=== PATIENT | male | born 1950 | race Caucasian/White ===

== ENCOUNTER 2016-05-21 08:03 | Inpatient (IN) | payer BC, MEDICARE ==
[2016-05-21] MEDS ORDERED: HYDROmorphone 1 MG/ML SYRINGE IVP STA ×2 (08:32→13:33)
[2016-05-21] MEDS ORDERED: SODIUM CHLORIDE 0.9% 1,000 ML IV ONE (08:32)
[2016-05-21] MEDS ORDERED: HYDROmorphone 1 MG/ML SYRINGE ONE ×2 (08:37→13:53)
[2016-05-21] MEDS ORDERED: LIDOCAINE 2% URO-JET 5 ML SYRINGE UR ONE ×5 (08:37→13:35)
[2016-05-21] MEDS ORDERED: LIDOCAINE 1%-EPI 1:100000 20 ML MDV ONE (12:52)
[2016-05-21] MEDS ORDERED: cefTRIAXone 1 GM in SODIUM CHLORIDE 0.9% MINIBAG 100 ML IV STA (13:33)
[2016-05-21] MEDS ORDERED: cefTRIAXone 1 GM VIAL ONE (13:55)
[2016-05-21] MEDS ORDERED: ACETAMINOPHEN 325 MG TABLET PO PRN (15:34)
[2016-05-21] MEDS ORDERED: ZOLPIDEM 5 MG TABLET PO PRN (15:34)
[2016-05-21] MEDS ORDERED: SODIUM CHLORIDE FLUSH 0.9% 10 ML SYRINGE IVP PRN (15:34)
[2016-05-21] MEDS ORDERED: HYDROmorphone 1 MG/ML SYRINGE IVP PRN (15:34)
[2016-05-21] MEDS ORDERED: PHENAZOPYRIDINE 100 MG TABLET PO PRN (15:34)
[2016-05-21] MEDS ORDERED: HYDROcod/ACETAM 10 MG/325 MG TABLET PO PRN (15:34)
[2016-05-21] MEDS ORDERED: ONDANSETRON 4 MG/2 ML VIAL IVP PRN (15:34)
[2016-05-21] MEDS: SODIUM CHLORIDE 0.9% 1,000 ML IV SCH (16:09)
[2016-05-21] MEDS: INSULIN ASPART 300 UNIT/3 ML PEN SUBQ SCH ×2 (17:42→21:59)
[2016-05-21] MEDS: HYDROcod/ACETAM 5/325 MG TABLET PO PRN (17:46)
[2016-05-21] MEDS: ATORVASTATIN 40 MG TABLET PO SCH (21:59)
[2016-05-21] MEDS: SODIUM CHLORIDE FLUSH 0.9% 10 ML SYRINGE IVP SCH (22:01)
[2016-05-21] MEDS: INSULIN GLARGINE 300 UNIT/3 ML PEN SUBQ SCH (22:05)
[2016-05-22] MEDS: SODIUM CHLORIDE 0.9% 1,000 ML IV SCH ×3 (01:31→21:14)
[2016-05-22] MEDS: SODIUM CHLORIDE FLUSH 0.9% 10 ML SYRINGE IVP SCH ×3 (06:26→21:17)
[2016-05-22] MEDS: PANTOPRAZOLE 40 MG TABLET PO SCH (06:27)
[2016-05-22] MEDS: POLYETHYLENE GLYCOL 3350 17 GM PACKET PO SCH (09:47)
[2016-05-22] MEDS: INSULIN ASPART 300 UNIT/3 ML PEN SUBQ SCH ×4 (10:20→21:16)
[2016-05-22] MEDS: LOSARTAN 50 MG TABLET PO SCH (10:21)
[2016-05-22] MEDS: ENOXAPARIN 40 MG/0.4 ML SYRINGE SUBQ SCH (10:21)
[2016-05-22] MEDS: EPLERENONE 25 MG TABLET PO SCH (10:22)
[2016-05-22] MEDS: CARVEDILOL 3.125 MG TABLET PO SCH (10:22)
[2016-05-22] MEDS: HYDROcod/ACETAM 5/325 MG TABLET PO PRN (10:22)
[2016-05-22] MEDS: TAMSULOSIN 0.4 MG CAPSULE PO SCH (10:23)
[2016-05-22] MEDS: ATORVASTATIN 40 MG TABLET PO SCH (21:16)
[2016-05-22] MEDS: INSULIN GLARGINE 300 UNIT/3 ML PEN SUBQ SCH (21:17)
[2016-05-23] MEDS: SODIUM CHLORIDE FLUSH 0.9% 10 ML SYRINGE IVP SCH ×3 (00:10→17:16)
[2016-05-23] MEDS ORDERED: LORazepam 2 MG/ML SYRINGE IVP PRN (03:24)
[2016-05-23] MEDS ORDERED: LIDOCAINE JELLY 2% 30 ML TUBE TOP PRN (03:25)
[2016-05-23] MEDS ORDERED: LIDOCAINE JELLY 2% 5 ML TUBE TOP ONE (03:32)
[2016-05-23] MEDS: PANTOPRAZOLE 40 MG TABLET PO SCH (05:27)
[2016-05-23] MEDS: LOSARTAN 50 MG TABLET PO SCH (07:57)
[2016-05-23] MEDS: TAMSULOSIN 0.4 MG CAPSULE PO SCH (07:57)
[2016-05-23] MEDS: POLYETHYLENE GLYCOL 3350 17 GM PACKET PO SCH (07:58)
[2016-05-23] MEDS: ENOXAPARIN 40 MG/0.4 ML SYRINGE SUBQ SCH (07:58)
[2016-05-23] MEDS: EPLERENONE 25 MG TABLET PO SCH (07:58)
[2016-05-23] MEDS: CARVEDILOL 3.125 MG TABLET PO SCH (07:58)
[2016-05-23] MEDS: INSULIN ASPART 300 UNIT/3 ML PEN SUBQ SCH ×4 (07:59→21:09)
[2016-05-23] MEDS: SODIUM CHLORIDE 0.9% 1,000 ML IV SCH ×2 (13:27→22:37)
[2016-05-23] MEDS: SENNA 8.6 MG TABLET PO SCH (21:03)
[2016-05-23] MEDS: ATORVASTATIN 40 MG TABLET PO SCH (21:07)
[2016-05-23] MEDS: INSULIN GLARGINE 300 UNIT/3 ML PEN SUBQ SCH (21:08)
[2016-05-24] MEDS: SODIUM CHLORIDE FLUSH 0.9% 10 ML SYRINGE IVP SCH ×2 (01:14→13:22)
[2016-05-24] MEDS: PANTOPRAZOLE 40 MG TABLET PO SCH (06:04)
[2016-05-24] MEDS: SENNA 8.6 MG TABLET PO SCH ×2 (06:04→13:46)
[2016-05-24] MEDS: INSULIN ASPART 300 UNIT/3 ML PEN SUBQ SCH ×2 (07:50→11:26)
[2016-05-24] MEDS: EPLERENONE 25 MG TABLET PO SCH (08:17)
[2016-05-24] MEDS: SODIUM CHLORIDE 0.9% 1,000 ML IV SCH ×2 (08:17→13:23)
[2016-05-24] MEDS: ENOXAPARIN 40 MG/0.4 ML SYRINGE SUBQ SCH (08:18)
[2016-05-24] MEDS: CARVEDILOL 3.125 MG TABLET PO SCH (08:18)
[2016-05-24] MEDS: POLYETHYLENE GLYCOL 3350 17 GM PACKET PO SCH (08:19)
[2016-05-24] MEDS: LOSARTAN 50 MG TABLET PO SCH (08:19)
[2016-05-24] MEDS: TAMSULOSIN 0.4 MG CAPSULE PO SCH (08:19)
[2016-05-24] MEDS ORDERED: DOCUSATE SODIUM 250 MG CAPSULE PO SCH (09:00)
== END 2016-05-24 15:00 | disposition home or self-care (01) | DRG 728 ==
DX: N41.0 Acute prostatitis (principal); R33.8 Other retention of urine; C61 Malignant neoplasm of prostate; E11.65 Type 2 diabetes mellitus with hyperglycemia; I10 Essential (primary) hypertension; E78.5 Hyperlipidemia, unspecified; I25.10 Atherosclerotic heart disease of native coronary artery without angina pectoris; Q62.5 Duplication of ureter; E65 Localized adiposity; K57.30 Diverticulosis of large intestine without perforation or abscess without bleeding; K42.9 Umbilical hernia without obstruction or gangrene; K40.90 Unilateral inguinal hernia, without obstruction or gangrene, not specified as recurrent; T38.3X6A Underdosing of insulin and oral hypoglycemic [antidiabetic] drugs, initial encounter; Z95.5 Presence of coronary angioplasty implant and graft; Z92.3 Personal history of irradiation; Z95.0 Presence of cardiac pacemaker; Z96.653 Presence of artificial knee joint, bilateral; Z79.899 Other long term (current) drug therapy; Z87.891 Personal history of nicotine dependence

== ENCOUNTER 2016-10-09 08:00 | Outpatient (CLI) | payer BC | END 2016-10-09 23:59 | disposition home or self-care (01) | LOC: LAB.R 08:00 | PROVIDERS: ATTEND Specialist | DX: Z08 Encounter for follow-up examination after completed treatment for malignant neoplasm (principal) | CPT/HCPCS: 36415; 84153 ==

== ENCOUNTER 2016-11-29 07:11 | Day surgery (SDC) | payer BC, MEDICARE ==
[2016-11-29] MEDS ORDERED: LACTATED RINGERS 1,000 ML IV ONE (08:00)
--- NOTE | 2016-11-29 08:28 | HISTORY & PHYSICAL EXAMINATION ---
HPI - History of Present Illness HPI Comment/Other: Patient is here for colonoscopy. Last colonoscopy 2006 and normal. Current Meds: LANTUS SOLOSTAR 100 UNIT/ML SOLN (INSULIN GLARGINE) Inject 10 units sub Q daily TAMSULOSIN HCL 0.4 MG CAPS (TAMSULOSIN HCL) Take one capsule by mouth daily LOSARTAN POTASSIUM 100 MG TABS (LOSARTAN POTASSIUM) Take one tablet by mouth every morning EPLERENONE 25 MG ORAL TABS (EPLERENONE) Take 1 tab by mouth daily CARVEDILOL 6.25 MG ORAL TABS (CARVEDILOL) Take 1 tab by mouth twice daily Allergies: * LATEX (Critical) Past Medical History: Reviewed history and no changes required: Irregular heartbeat Pacemaker internal defibrillator Heart Attack Chest pain hypertension hyperlipidemia severe snoring Sleep Apnea/CPAP use Diabetes Prostate Cancer Family History Summary: Reviewed history and no changes required: 10/16/2016 Mother (biol.) - Has a mother - Entered On: 10/16/2016 Father (biol.) - Has a father - Entered On: 10/16/2016 Social History: Reviewed history and no changes required: Risk Factors: Smoked Tobacco Use: Never smoker Smokeless Tobacco Use: Former Year quit: 2011 Years Since Last Quit: 6 Alcohol use: no Exercise: yes Times per week: 5 Type of Exercise: bike, weights Review of Systems See HPI Physical Exam General: well developed, well nourished, in no acute distress Lungs: clear bilaterally to A & P Heart: regular rate and rhythm, S1, S2 without murmurs, rubs, gallops, or clicks Abdomen: bowel sounds positive; abdomen soft and non-tender without masses, organomegaly, or hernias noted Pulses: pulses normal in all 4 extremities Extremities: no clubbing, cyanosis, edema, or deformity noted with normal full range of motion of all joints Cervical Nodes: no significant adenopathy Psych: alert and cooperative; normal mood and affect; normal attention span and concentration Problems: Problems Added: 1) Dx of Screening, colon cancer ([id number]) (ICD-V76.51) Impression & Recommendations: Problem # 1: Surveillance for colon cancer Will proceed with colonoscopy. PMH/PSH - Past Medical History Cardiovascular: positive: Hypertension, High cholesterol, [place] Respiratory: positive: None, Sleep apnea Neuro: positive: None Endocrine/Autoimmune: positive: Type 2 diabetes GI: positive: None : positive: Retention, Other HEENT: positive: None Psych: positive: None Musculoskeletal: positive: None Derm: positive: None MRSA Hx?: No - Past Surgical History Ortho: positive: Knee replacement, Arthroscopic surgery, Spine surgery Cardiovascular: positive: Coronary stent, AICD, Cardiac catheterization, Angioplasty Social & Family Hx - Social History Does the pt smoke?: No Smoking Status: Former smoker Does the pt drink ETOH?: No ETOH Use: Beer Does the pt have substance abuse?: No - POLST Patient has POLST: No Meds/Allgy - Home Medications Home Medications: Ambulatory Orders Medication Instructions Recorded Confirmed Eplerenone 25 mg PO DAILY 07/22/15 11/29/16 Carvedilol 6.25 mg PO BID 05/09/16 11/29/16 Losartan [Cozaar] 100 mg PO DAILY 05/09/16 11/29/16 Phenazopyridine HCl [Pyridium] 200 mg PO TID PRN #10 tablet 05/09/16 11/29/16 Tamsulosin [Flomax] 0.4 mg PO QPM 05/09/16 11/29/16 Nitroglycerin [Nitrostat] 0.4 mg SL Q5MIN PRN 05/22/16 11/22/16 Insulin Aspart [NovoLOG] 1 - 5 unit SUBQ 05/24/16 11/22/16 0800,1200,1700,2100 #600 pen Insulin Glargine [Lantus Solostar] 10 unit SUBQ QPM #300 pen 05/24/16 11/22/16 Levofloxacin [Levaquin] 750 mg PO DAILYWM #30 tablet 05/24/16 11/22/16 metFORMIN [Glucophage] 1 tab PO BID 11/22/16 11/29/16 - Allergies Allergies/Adverse Reactions: Allergies Allergy/AdvReac Type Severity Reaction Status Date / Time No Known Drug Allergies Allergy Verified 05/21/16 08:17 Exam - Vital Signs Vital Signs: Vital Signs x48h Temp Pulse Resp BP Pulse Ox 11/29/16 07:22 36 C L 63 16 170/84 H 100 Results - Lab Results Other Lab Results: Lab Results x24hrs 11/29/16 Range/Units 07:36 POC Whole Bld Glucose 152 H (70 - 100) mg/dL
[2016-11-29] MEDS ORDERED: LIDOCAINE-MPF 2% 5 ML VIAL IM ONE (09:05)
[2016-11-29] MEDS ORDERED: PHENYLEPHRINE 50 MG/5 ML VIAL IV ONE (09:05)
[2016-11-29] MEDS ORDERED: PROPOFOL 200 MG/20 ML VIAL IVP ONE (09:05)
[2016-11-29 10:20] VITALS: BP 146/94
== END 2016-11-29 07:12 | disposition home or self-care (01) ==
LOC: SDS 07:11
PROVIDERS: ATTEND Surgery
PROC: 0DBL8ZX Excision of Transverse Colon, Via Natural or Artificial Opening Endoscopic, Diagnostic (ICD-10-PCS; 2016-11-29)
PROC: 3E0H8GC Introduction of Other Therapeutic Substance into Lower GI, Via Natural or Artificial Opening Endoscopic (ICD-10-PCS; 2016-11-29)
PROC: 0DBK8ZZ Excision of Ascending Colon, Via Natural or Artificial Opening Endoscopic (ICD-10-PCS; principal; 2016-11-29 08:15)
DX: Z12.11 Encounter for screening for malignant neoplasm of colon (principal); D12.3 Benign neoplasm of transverse colon; D12.4 Benign neoplasm of descending colon; K64.8 Other hemorrhoids; K64.4 Residual hemorrhoidal skin tags; K57.30 Diverticulosis of large intestine without perforation or abscess without bleeding; I25.2 Old myocardial infarction; I10 Essential (primary) hypertension; R06.83 Snoring; G47.30 Sleep apnea, unspecified; J44.9 Chronic obstructive pulmonary disease, unspecified; Z87.891 Personal history of nicotine dependence; Z85.46 Personal history of malignant neoplasm of prostate; E11.9 Type 2 diabetes mellitus without complications; Z95.5 Presence of coronary angioplasty implant and graft; Z95.810 Presence of automatic (implantable) cardiac defibrillator; E78.5 Hyperlipidemia, unspecified
CPT/HCPCS: 45380; 45381; 45385; J7120; 88305

== ENCOUNTER 2016-12-17 09:00 | Outpatient (CLI) | payer BC ==
[2016-12-17 18:21] LABS: BASOPHILS # (AUTO) 0.1 10^3/uL (0.0-0.1); BASOPHILS % (AUTO) 0.8 %; EOSINOPHILS # (AUTO) 0.3 10^3/uL (0.0-0.7); EOSINOPHILS % (AUTO) 4.8 %; HCT - HEMATOCRIT 38.7 % (42.0-52.0); HGB - HEMOGLOBIN 12.9 g/dL (14.0-18.0); LYMPHOCYTES # (AUTO) 1.6 10^3/uL (1.5-3.5); MEAN CORPUSCULAR HEMOGLOBIN 27.1 pg (27.0-31.0); MEAN CORPUSCULAR HGB CONC 33.2 g/dL (32.0-36.0); MEAN CORPUSCULAR VOLUME 81.6 fL (80.0-94.0); MEAN PLATELET VOLUME 8.4 fL (7.4-11.4); MONOCYTES # (AUTO) 0.6 10^3/uL (0.0-1.0); MONOCYTES % (AUTO) 9.1 %; NEUTROPHILS # (AUTO) 3.6 10^3/uL (1.5-6.6); NEUTROPHILS % (AUTO) 59.3 %; RED BLOOD COUNT 4.74 10^6/uL (4.70-6.10); RED CELL DISTRIBUTION WIDTH 16.6 % (12.0-15.0); UNCORRECTED WHITE BLOOD COUNT 6.2 x10^3/uL; WHITE BLOOD COUNT 6.2 x10^3/uL (4.8-10.8)
[2016-12-17 19:18] LABS: BILIRUBIN,TOTAL 1.4 mg/dL (0.2-1.0); CALCIUM 8.9 mg/dL (8.5-10.3); CREATININE 1.2 mg/dL (0.6-1.2); POTASSIUM 3.7 mmol/L (3.5-5.0); TOTAL PROTEIN 7.7 g/dL (6.7-8.2)
[2016-12-17 20:16] LABS: HEMOGLOBIN A1C 0.83 g/dL
== END 2016-12-17 09:01 | disposition home or self-care (01) ==
LOC: LAB.F 09:00
PROVIDERS: ATTEND Surgery
DX: K63.89 Other specified diseases of intestine (principal)
CPT/HCPCS: 36415; 80053; 83036; 85025

== ENCOUNTER 2016-12-26 14:31 | Outpatient (CLI) | payer BC ==
--- NOTE | 2016-12-27 09:16 | XRAY Report ---
TWO-VIEW CHEST: 12/26/2016 CLINICAL INDICATION: Colon mass. FINDINGS: Frontal and lateral views of the chest are compared to previous film of 07/22/2015. The c ardiac silhouette is within normal limits. Left subclavian dual-chamber pacemaker/AICD is present. The lungs are clear. No effusion or pneumothorax is present. IMPRESSION: PACEMAKER. NO EVIDENCE OF ACUTE CARDIOPULMONARY DISEASE. JOB #: [id number] EXT JOB #:[id number]
== END 2016-12-26 14:32 | disposition home or self-care (01) ==
LOC: DI.S 14:31
PROVIDERS: ATTEND Surgery
DX: Z01.818 Encounter for other preprocedural examination (principal); K63.89 Other specified diseases of intestine; Z95.0 Presence of cardiac pacemaker
CPT/HCPCS: 71020

== ENCOUNTER 2017-01-23 15:17 | Outpatient (CLI) | payer BC ==
[2017-01-23 16:23] LABS: CALCIUM 9.3 mg/dL (8.5-10.3); CREATININE 1.4 mg/dL (0.6-1.2); POTASSIUM 4.5 mmol/L (3.5-5.0)
[2017-01-23 16:52] LABS: BASOPHILS # (AUTO) 0.1 10^3/uL (0.0-0.1); BASOPHILS % (AUTO) 0.7 %; EOSINOPHILS # (AUTO) 0.2 10^3/uL (0.0-0.7); EOSINOPHILS % (AUTO) 3.1 %; HCT - HEMATOCRIT 40.6 % (42.0-52.0); HGB - HEMOGLOBIN 13.2 g/dL (14.0-18.0); LYMPHOCYTES # (AUTO) 1.8 10^3/uL (1.5-3.5); LYMPHOCYTES % (AUTO) 26.6 %; MEAN CORPUSCULAR HEMOGLOBIN 27.2 pg (27.0-31.0); MEAN CORPUSCULAR HGB CONC 32.6 g/dL (32.0-36.0); MEAN CORPUSCULAR VOLUME 83.5 fL (80.0-94.0); MEAN PLATELET VOLUME 8.5 fL (7.4-11.4); MONOCYTES # (AUTO) 0.6 10^3/uL (0.0-1.0); MONOCYTES % (AUTO) 8.8 %; NEUTROPHILS # (AUTO) 4.2 10^3/uL (1.5-6.6); NEUTROPHILS % (AUTO) 60.8 %; RED BLOOD COUNT 4.86 10^6/uL (4.70-6.10); RED CELL DISTRIBUTION WIDTH 16.6 % (12.0-15.0); UNCORRECTED WHITE BLOOD COUNT 6.9 x10^3/uL; WHITE BLOOD COUNT 6.9 x10^3/uL (4.8-10.8)
== END 2017-01-23 15:18 | disposition home or self-care (01) ==
LOC: LAB 15:17
PROVIDERS: ATTEND Registered Nurse
DX: Z79.899 Other long term (current) drug therapy (principal)
CPT/HCPCS: 80048; 85025

== ENCOUNTER 2017-02-04 05:58 | Inpatient (IN) | payer BC, MEDICARE ==
[2017-02-04] MEDS ORDERED: ceFAZolin 2 GM/50 ML 50 ML IV ONE (06:30)
[2017-02-04] MEDS ORDERED: metroNIDAZOLE 500 MG/100 ML 100 ML ONE (06:30)
[2017-02-04] MEDS ORDERED: LACTATED RINGERS 1,000 ML IV ONE ×3 (06:42→14:40)
--- NOTE | 2017-02-04 07:57 | HISTORY & PHYSICAL EXAMINATION ---
HPI - History of Present Illness HPI Comment/Other: Update to prior H and P Frank is here today for partial colectomy for large sessile polyp with dysplasia. He has undergone his bowel prep without difficulties. He had a heart attack many years ago and had cardiac stents placed at that time. Additionally he has an ICD in place. He most recently saw his production bow maker on November 07 who recommended no changes in his medications and indicated that he could proceed with surgery without any further preoperative cardiac testing.His most recent echocardiogram was in 2012 and demonstrated an ejection fraction of 30%.He exercises regularly and is quite active with golfing and outdoor activities.He denies any shortness of breath with exertion.He is a diabetic on metformin alone. His HbA1c was 7.7 Current Meds: Metformin TAMSULOSIN HCL 0.4 MG CAPS (TAMSULOSIN HCL) Take one capsule by mouth daily LOSARTAN POTASSIUM 100 MG TABS (LOSARTAN POTASSIUM) Take one tablet by mouth every morning EPLERENONE 25 MG ORAL TABS (EPLERENONE) Take 1 tab by mouth daily CARVEDILOL 6.25 MG ORAL TABS (CARVEDILOL) Take 1 tab by mouth twice daily Allergies: * LATEX (Critical) PMH: prostate cancer MS HTN ischemic cardiomyopathy Diabetes PSH: cardiac stent placement prostatectomy B/L knee replaceement Physical Exam General: normal appearance. Lungs: clear bilaterally to A & P Heart: regular rate and rhythm, S1, S2 without murmurs, rubs, gallops, or clicks Abdomen: bowel sounds positive; abdomen soft and non-tender without masses, organomegaly, or hernias noted Pulses: pulses normal in all 4 extremities Extremities: no clubbing, cyanosis, edema, or deformity noted with normal full range of motion of all joints Cervical Nodes: no significant adenopathy Psych: alert and cooperative; normal mood and affect; normal attention span and concentration Impression & Recommendations: Problem # 1: transverse colon polyp with dysplasia Will proceed with partial colectomy PMH/PSH - Past Medical History Cardiovascular: positive: Hypertension, High cholesterol, [place] Respiratory: positive: Sleep apnea, CPAP use Neuro: positive: None Endocrine/Autoimmune: positive: Type 2 diabetes GI: positive: Other : positive: Retention, Other HEENT: positive: None Psych: positive: None Musculoskeletal: positive: None Derm: positive: None MRSA Hx?: No - Past Surgical History General: positive: Colonoscopy Ortho: positive: Knee replacement, Arthroscopic surgery, Spine surgery Cardiovascular: positive: Coronary stent, AICD, Cardiac catheterization, Angioplasty Social & Family Hx - Social History Does the pt smoke?: No Smoking Status: Former smoker Does the pt drink ETOH?: No Does the pt have substance abuse?: No - POLST Patient has POLST: No Meds/Allgy - Home Medications Home Medications: Ambulatory Orders Medication Instructions Recorded Confirmed Eplerenone 25 mg PO DAILY 07/22/15 01/23/17 Carvedilol 6.25 mg PO BID 05/09/16 01/23/17 Losartan [Cozaar] 100 mg PO DAILY 05/09/16 01/23/17 Tamsulosin [Flomax] 0.4 mg PO QPM 05/09/16 01/23/17 Nitroglycerin [Nitrostat] 0.4 mg SL Q5MIN PRN 05/22/16 01/23/17 metFORMIN [Glucophage] 500 mg PO BID 11/22/16 01/23/17 - Allergies Allergies/Adverse Reactions: Allergies Allergy/AdvReac Type Severity Reaction Status Date / Time latex Allergy Rash Verified 01/23/17 15:38 prednisone Allergy Unknown Verified 01/23/17 15:38 Exam - Vital Signs Vital Signs: Vital Signs x48h Temp Pulse Resp BP Pulse Ox 02/04/17 06:42 36.7 C 73 16 191/80 H 99 Results - Lab Results Other Lab Results: Lab Results x24hrs 02/04/17 Range/Units 07:03 POC Whole Bld Glucose 149 H (70 - 100) mg/dL
[2017-02-04] MEDS ORDERED: BUPIVACAINE 0.25%-EPI 1:200000 PF 30 ML VIAL SUBQ ONE ×2 (09:04→13:09)
[2017-02-04] MEDS ORDERED: GLYCOPYRROLATE 1 MG/5 ML VIAL IVP ONE (09:35)
[2017-02-04] MEDS ORDERED: PROPOFOL 200 MG/20 ML VIAL IVP ONE (09:35)
[2017-02-04] MEDS ORDERED: ePHEDrine 50 MG/ML VIAL IVP ONE (09:35)
[2017-02-04] MEDS ORDERED: ceFAZolin 1 GM VIAL IV ONE (09:35)
[2017-02-04] MEDS ORDERED: NEOSTIGMINE 1 MG/1 ML 10 ML MDV IVP ONE (09:35)
[2017-02-04] MEDS ORDERED: ACETAMINOPHEN 1,000 MG/100 ML 100 ML IV ONE (09:35)
[2017-02-04] MEDS ORDERED: ROCURONIUM 50 MG/5 ML VIAL IVP ONE (09:35)
[2017-02-04] MEDS ORDERED: fentaNYL 100 MCG/2 ML VIAL IVP ONE (09:35)
[2017-02-04] MEDS ORDERED: ONDANSETRON 4 MG/2 ML VIAL IVP ONE (09:35)
[2017-02-04] MEDS ORDERED: LIDOCAINE-MPF 2% 5 ML VIAL IM ONE (09:35)
[2017-02-04] MEDS ORDERED: MIDAZOLAM 2 MG/2 ML VIAL IVP ONE (09:35)
[2017-02-04] MEDS ORDERED: BUPIVACAINE 0.25% PF 30 ML VIAL SUBQ ONE (13:10)
[2017-02-04] MEDS ORDERED: LABETALOL 20 MG/4 ML SYRINGE IVP ONE ×2 (13:55→14:45)
[2017-02-04] MEDS ORDERED: MORPHINE PCA 50 MG IV PRN (13:57)
[2017-02-04] MEDS ORDERED: ONDANSETRON 4 MG/2 ML VIAL IVP PRN (13:57)
[2017-02-04] MEDS: hydrALAZINE INJ 20 MG/ML VIAL ONE ×2 (14:54→15:09)
[2017-02-04] MEDS: HYDROmorphone 1 MG/ML CARPUJECT ONE ×3 (15:02→15:13)
--- NOTE | 2017-02-04 16:05 | OPERATIVE REPORT ---
DATE OF SURGERY: 02/04/2017 00:00:00 PREOPERATIVE DIAGNOSIS: Sessile Serrated Adenoma with dysplasia POSTOPERATIVE DIAGNOSIS: same NAME OF PROCEDURE: Laparoscopic lysis of adhesions and mobilization of hepatic flexure and extended right hemicolectomy. SURGEON: Kaitlin Malcolm MD ANESTHESIA: General ANESTHESIOLOGIST: Frida Barajas CRNA and Ryan Arriola CRNA INDICATION FOR PROCEDURE: This is a 66-year-old male who underwent a screening colonoscopy and was noted to have a large, sessile, serrated adenoma in the transverse colon with dysplasia, which could not be removed endoscopically. FINDINGS: After obtaining informed consent from the patient, he was brought into the operating room and positioned on the operating table in the supine position, taking note of pressure points. He was intubated by Anesthesia. A Hsieh catheter was inserted. He was administered 3 g of Ancef and 500 of Flagyl. He was then prepped and draped in the usual sterile fashion, and a timeout was taken according to protocol. A supraumbilical 1 cm incision was created and deepened down the umbilical stalk, which was grasped and elevated, and the Veress needle inserted. The abdominal cavity was insufflated. A 5 mm incision was created in the right lateral abdominal wall, and the Optiview trocar was utilized to enter the abdominal cavity. The Veress needle was removed and replaced with a 12 mm trocar. An additional 5 mm port was placed in the patient's right lateral abdominal wall. The omentum was retracted over the stomach, and the tattooed lesion was noted to be in the mid transverse colon just above the middle colic vessels. The patient was then positioned appropriately, and the gastrocolic ligament was divided towards the hepatic flexure. This was completely divided and the hepatic flexure mobilized, taking care to protect the underlying duodenum. I then worked my way down the white line of Toldt. The anatomy was somewhat skewed at this point due to a large underlying kidney. Once the line of Toldt was divided to the cecum, I then turned my attention again to the middle colic pedicle. The colon was grasped at the level of the tattooed marking and elevated towards the anterior abdominal wall. The underlying vascular pedicle was identified. The right branch of the middle colic was isolated. This was then divided using the Endo-AMARI 45 mm stapling device with a white load. The mesentery was then divided down towards the right colon. The right colic branch was then identified and was circumferentially dissected from the surrounding mesentery. It was clipped with 2 clips placed proximally, 1 distally and divided. I then continued to divide the mesentery towards the cecum and encountered a small amount of bleeding at this point. This was controlled using clips and the harmonic. A Ray-Alessandra was placed at the site of bleeding, and pressure was held. Upon removal of the Ray- Alessandra, hemostasis was noted to be achieved. At this point, I was unable to continue dissection towards the cecum, and a 2nd 5 mm port was placed in the right lower quadrant. The colon was retracted medially, and I continued to divide the lateral attachments of the colon past the cecum, where the small bowel was noted to be adherent to the pelvis. This was most likely related to his prior prostate radiation treatment. The small bowel was carefully dissected off the lateral abdominal wall, taking care not to injure any underlying structures including the ureter. Once the small bowel was completely freed, the cecum was elevated and the ileocolic vessel identified. This was circumferentially dissected from the mesentery and was divided again using the Endo-AMARI 45 mm stapling device with a white load. At this point, the portion of small bowel was chosen for the site of transection. The mesentery was divided up to the level of the small bowel, which was approximately 10 cm proximal to the cecum. The small bowel was then divided using the Endo-AMARI with a blue load. I then ensured that there was complete mobility of the ascending and transverse colon, and a few remaining strands from the mesentery were divided using the Harmonic. The site of distal transection of the colon was chosen, and the mesentery was divided up until this point. This was noted to be 5 cm distal to the tattooed marking. At this point, the proximal small bowel was grasped, and the patient was flattened. The epigastric incision was then extended approximately to 4 cm using electrocautery. The fascia was divided protecting the underlying abdominal contents. The small Gustavo wound protector was then inserted. The proximal small bowel and the distal specimen were both retracted through the incision. The mid transverse colon distal to the site of the tattoo marking was then inspected, ensuring adequate margins. The remaining mesentery was divided using electrocautery to the colonic serosa. The transverse colon was then transected at this point using a AMARI 55 mm stapling device. The small bowel and colon were then aligned in order to ensure no twisting of the underlying bowel. Enterotomies were then created, and the anastomosis was created using the Endo-AMARI 55 mm stapling device. The common channel was then closed with a running 3-0 Vicryl and imbricating 3-0 interrupted silks. The anastomosis was palpated and was noted to be widely patent. The bowel was then dropped back into the abdominal cavity and the abdominal cavity inspected for any signs of bleeding, and none was noted. At this point, the team's gloves were changed. All instrumentation was removed from the field. The fascia was then closed with a running looped PDS. Next, 60 mL of local anesthetic was infiltrated. The skin incisions were then closed with 4-0 Monocryl and Steri- Strips, and sterile dressings were applied. The patient was extubated and taken to the recovery room in stable condition. ESTIMATED BLOOD LOSS: 50 mL. FLUIDS RECEIVED 1500 mL of crystalloid. URINE OUTPUT: 350 mL. SPECIMEN: Right colon. COMPLICATIONS: None. JOB #: [id number] EXT JOB #:[id number] MTDTova
[2017-02-04] MEDS: ACETAMINOPHEN 1,000 MG/100 ML 100 ML IV SCH ×2 (16:08→20:24)
[2017-02-04] MEDS ORDERED: SODIUM CHLORIDE FLUSH 0.9% 10 ML SYRINGE IVP ONE (16:15)
[2017-02-04] MEDS: SODIUM CHLORIDE FLUSH 0.9% 10 ML SYRINGE IVP SCH ×2 (16:28→20:37)
[2017-02-04] MEDS: LACTATED RINGERS 1,000 ML IV SCH (16:28)
[2017-02-04] MEDS: INSULIN ASPART 300 UNIT/3 ML PEN SUBQ SCH ×2 (17:58→20:35)
[2017-02-04] MEDS: CARVEDILOL 3.125 MG TABLET PO SCH (20:24)
[2017-02-04] MEDS: TAMSULOSIN 0.4 MG CAPSULE PO SCH (20:24)
[2017-02-05] MEDS: ACETAMINOPHEN 1,000 MG/100 ML 100 ML IV SCH ×4 (02:05→20:24)
[2017-02-05] MEDS: SODIUM CHLORIDE FLUSH 0.9% 10 ML SYRINGE IVP SCH ×3 (05:48→20:29)
[2017-02-05] MEDS: LACTATED RINGERS 1,000 ML IV SCH (06:48)
[2017-02-05] MEDS: EPLERENONE 25 MG TABLET PO SCH (09:08)
[2017-02-05] MEDS: LOSARTAN 50 MG TABLET PO SCH (09:08)
[2017-02-05] MEDS: INSULIN ASPART 300 UNIT/3 ML PEN SUBQ SCH ×4 (09:08→20:53)
[2017-02-05] MEDS: CARVEDILOL 3.125 MG TABLET PO SCH ×2 (09:08→20:24)
[2017-02-05] MEDS: ENOXAPARIN 40 MG/0.4 ML SYRINGE SUBQ SCH (09:09)
--- NOTE | 2017-02-05 13:24 | PROVIDER PROGRESS NOTE ---
Subjective - General Admit Date: 02/04/17 Procedure Date: 02/04/17 Post Op Days: 1 Procedure Performed: Laparoscopic estended right hemicolectomy - Review of Systems General: positive: No symptoms Cardiovascular: positive: No symptoms Gastrointestinal: positive: Abdominal pain (mild incisional abdominal pain). negative: Nausea, Vomiting, Flatus Psychiatric: positive: No symptoms Objective - Patient Data Reviewed Vital Signs: Yes Vital Signs: Vital Signs x48h Temp Pulse Resp BP Pulse Ox 02/05/17 11:38 36.5 C 59 L 18 129/68 97 02/05/17 10:00 18 02/05/17 07:55 36.7 C 59 L 16 136/68 H 100 02/05/17 05:57 16 Weight: Weight 02/03/17 02/04/17 02/05/17 23:59 23:59 23:59 Weight (kg) 90.9 kg Intake & Output: Intake and Output Totals x24h 02/03/17 02/04/17 02/05/17 23:59 23:59 23:59 Intake Total 2572 1053 Output Total 875 450 Balance 1697 603 - Lab Results Other Lab Results: Lab Results x24hrs 02/05/17 02/05/17 02/04/17 Range/Units 11:25 07:28 20:29 POC Whole Bld Glucose 128 H 148 H 191 H (70 - 100) mg/dL 02/04/17 02/04/17 Range/Units 16:17 14:17 POC Whole Bld Glucose 179 H 185 H (70 - 100) mg/dL - Current Medications Current Medications: Current Medications Generic Name Dose Route Start Last Admin Trade Name Bolivar PRN Reason Stop Dose Admin Carvedilol 6.25 mg 02/04/17 21:00 02/05/17 09:08 Coreg PO 6.25 mg BID JOSE Administration Enoxaparin Sodium 40 mg 02/05/17 09:00 02/05/17 09:09 Lovenox SUBQ 40 mg DAILY JOSE Administration Eplerenone 25 mg 02/05/17 09:00 02/05/17 09:08 Inspra PO 25 mg DAILY JOSE Administration Lactated Ringer's 1,000 mls @ 50 mls/hr 02/04/17 14:00 02/05/17 06:48 Lr IV 50 mls/hr .Q20H JOSE Administration Acetaminophen 100 mls @ 400 mls/hr 02/04/17 14:00 02/05/17 09:20 Ofirmev IV 400 mls/hr Q6H JOSE Administration Insulin Aspart 1 - 9 unit 02/04/17 17:00 02/05/17 12:21 Novolog SUBQ Not Given 0800,1200,1700,2100 [facility] Protocol Losartan Potassium 100 mg 02/05/17 09:00 02/05/17 09:08 Cozaar PO 100 mg DAILY JOSE Administration Morphine Sulfate/Sodium Chloride 0 mg 02/04/17 13:57 02/04/17 16:18 Morphine Tobacco Grower (Use Tobacco Grower Order Set) IV 50 mg MACHINE TOOL ELECTRICIAN PRN Administration PAIN Protocol Sodium Chloride 10 ml 02/04/17 14:00 02/05/17 05:48 Normal Saline Flush 0.9% IVP Not Given Q8HR [facility] Tamsulosin HCl 0.4 mg 02/04/17 21:00 02/04/17 20:24 Flomax PO 0.4 mg QPM JOSE Administration - Physical Exam Wound/Incisions: positive: Healing well, Dressing dry and intact, No drainage General Appearance: positive: No acute distress Respiratory: positive: No respiratory distress, Breath sounds nml Cardiovascular: positive: Regular rate & rhythm Abdomen: positive: Non-tender, No distention, Other (hypoactive vel sounds) Extremities: positive: No pedal edema Neurologic/Psychiatric: positive: Oriented x3 Impression/Plan - Problem List Problem List: s/p laparoscopic extended right hemicolectomy POD 1 - Hsieh catheter removed. Patient is a trial of void. Explained to patient that he may have difficulty voiding given his history of requiring self catheterizatio since his prostatectomy and radiation. Will straight cath PRN - Encourage ambulation in the halls. Patient has walker at bedside and intends to walk later this am. - Continue clear liquids. Await bowel function. Maintence fluids at 50 cc to continue for 24 hours - Continue MACHINE TOOL ELECTRICIAN and IV tylenol for pain control -Monitor blood glucose and treat with SSI as indicated. Will hold oral antiglycemics until regular diet resumed. - HTN home medications have been resumed and BP is stable - Flomax resumed for dysurea - statin resumed. - Lovenox for DVT prophylaxis - pepcid for GI prophylaxis
[2017-02-05] MEDS: TAMSULOSIN 0.4 MG CAPSULE PO SCH (20:24)
[2017-02-06] MEDS: ACETAMINOPHEN 1,000 MG/100 ML 100 ML IV SCH ×4 (01:48→20:10)
[2017-02-06] MEDS: LACTATED RINGERS 1,000 ML IV SCH (01:52)
[2017-02-06] MEDS: SODIUM CHLORIDE FLUSH 0.9% 10 ML SYRINGE IVP SCH ×3 (02:17→21:12)
[2017-02-06] MEDS: INSULIN ASPART 300 UNIT/3 ML PEN SUBQ SCH ×4 (07:50→21:12)
[2017-02-06] MEDS: CARVEDILOL 3.125 MG TABLET PO SCH ×2 (08:13→20:10)
[2017-02-06] MEDS: EPLERENONE 25 MG TABLET PO SCH (08:13)
[2017-02-06] MEDS: ENOXAPARIN 40 MG/0.4 ML SYRINGE SUBQ SCH (08:13)
[2017-02-06] MEDS: LOSARTAN 50 MG TABLET PO SCH (08:13)
[2017-02-06] MEDS ORDERED: oxyCODONE 5 MG TABLET PO PRN (12:58)
--- NOTE | 2017-02-06 13:53 | PROVIDER PROGRESS NOTE ---
Subjective - General Admit Date: 02/04/17 Procedure Date: 02/04/17 Post Op Days: 2 Procedure Performed: Laparoscopic estended right hemicolectomy - Review of Systems Wound/Incisions: positive: Healing well, Dressing dry and intact, No drainage General: positive: No symptoms Cardiovascular: positive: No symptoms Gastrointestinal: positive: Abdominal pain (mild incisional abdominal pain). negative: Nausea, Vomiting, Flatus Genitourinary: positive: No symptoms, Other (+ burping and hiccupping). negative: Retention Psychiatric: positive: No symptoms Objective - Patient Data Reviewed Vital Signs: Yes Vital Signs: Vital Signs x48h Temp Pulse Resp BP Pulse Ox 02/06/17 11:46 36.6 C 65 16 159/98 H 99 02/06/17 09:59 16 02/06/17 08:18 36.8 C 72 16 151/101 H 96 Weight: Weight 02/04/17 02/05/17 02/06/17 23:59 23:59 23:59 Weight (kg) 90.9 kg Intake & Output: Intake and Output Totals x24h 02/04/17 02/05/17 02/06/17 23:59 23:59 23:59 Intake Total 2572 2688 1249 Output Total 875 1900 1125 Balance 1697 788 124 - Lab Results Other Lab Results: Lab Results x24hrs 02/06/17 02/06/17 02/05/17 Range/Units 11:28 07:32 20:30 POC Whole Bld Glucose 138 H 126 H 134 H (70 - 100) mg/dL 02/05/17 Range/Units 16:30 POC Whole Bld Glucose 170 H (70 - 100) mg/dL - Current Medications Current Medications: Current Medications Generic Name Dose Route Start Last Admin Trade Name Freq PRN Reason Stop Dose Admin Carvedilol 6.25 mg 02/04/17 21:00 02/06/17 08:13 Coreg PO 6.25 mg BID JOSE Administration Enoxaparin Sodium 40 mg 02/05/17 09:00 02/06/17 08:13 Lovenox SUBQ 40 mg DAILY JOSE Administration Eplerenone 25 mg 02/05/17 09:00 02/06/17 08:13 Inspra PO 25 mg DAILY JOSE Administration Acetaminophen 100 mls @ 400 mls/hr 02/04/17 14:00 02/06/17 13:49 Ofirmev IV 400 mls/hr Q6H JOSE Administration Insulin Aspart 1 - 9 unit 02/04/17 17:00 02/06/17 11:44 Novolog SUBQ Not Given 0800,1200,1700,2100 [facility] Protocol Losartan Potassium 100 mg 02/05/17 09:00 02/06/17 08:13 Cozaar PO 100 mg DAILY JOSE Administration Morphine Sulfate/Sodium Chloride 0 mg 02/04/17 13:57 02/04/17 16:18 Morphine Customer Sales Advisor (Use Customer Sales Advisor Order Set) IV 50 mg HEAD OF MATHEMATICS PRN Administration PAIN Protocol Sodium Chloride 10 ml 02/04/17 14:00 02/06/17 13:49 Normal Saline Flush 0.9% IVP 10 ml Q8HR JOSE Administration Tamsulosin HCl 0.4 mg 02/04/17 21:00 02/05/17 20:24 Flomax PO 0.4 mg QPM JOSE Administration - Physical Exam Wound/Incisions: positive: Dressing dry and intact General Appearance: positive: No acute distress Respiratory: positive: No respiratory distress Cardiovascular: positive: Regular rate & rhythm Abdomen: positive: Other (soft, non-distended, non-tender to light palpation) Extremities: positive: No pedal edema Neurologic/Psychiatric: positive: Oriented x3 Impression/Plan - Problem List Problem List: s/p lap extended right hemicolectomy POD 2 - DC IV fluids and HEAD OF MATHEMATICS - continue clear liquids. Await bowel function. Encourage ambulation - home medications with exception of oral diabetic meds have been resumed - lovenox for DVT prophylaxis - Pepcid for GI prophylaxis - oxycodone and IV tylenol for pain control - anticipate DC home once bowel function has resumed and patient is tolerating a soft diet.
[2017-02-06] MEDS: SODIUM CHLORIDE FLUSH 0.9% 10 ML SYRINGE IVP PRN (20:10)
[2017-02-06] MEDS: TAMSULOSIN 0.4 MG CAPSULE PO SCH (21:12)
[2017-02-07] MEDS: ACETAMINOPHEN 1,000 MG/100 ML 100 ML IV SCH ×4 (02:12→23:32)
[2017-02-07] MEDS: SODIUM CHLORIDE FLUSH 0.9% 10 ML SYRINGE IVP SCH ×3 (07:06→20:45)
[2017-02-07] MEDS: INSULIN ASPART 300 UNIT/3 ML PEN SUBQ SCH ×4 (07:59→20:45)
[2017-02-07] MEDS: CARVEDILOL 3.125 MG TABLET PO SCH ×2 (10:14→20:43)
[2017-02-07] MEDS: LOSARTAN 50 MG TABLET PO SCH (10:15)
[2017-02-07] MEDS: EPLERENONE 25 MG TABLET PO SCH (10:15)
[2017-02-07] MEDS: ENOXAPARIN 40 MG/0.4 ML SYRINGE SUBQ SCH (10:15)
[2017-02-07] MEDS ORDERED: SENNA 8.6 MG TABLET PO PRN (10:42)
--- NOTE | 2017-02-07 12:56 | PROVIDER PROGRESS NOTE ---
Subjective - General Admit Date: 02/04/17 Procedure Date: 02/04/17 Post Op Days: 3 Procedure Performed: Laparoscopic estended right hemicolectomy - Review of Systems Wound/Incisions: positive: Healing well, No drainage. negative: Erythema General: positive: No symptoms Cardiovascular: positive: No symptoms Gastrointestinal: negative: Nausea, Vomiting, Flatus Genitourinary: positive: No symptoms, Other. negative: Retention Psychiatric: positive: No symptoms Objective - Patient Data Reviewed Vital Signs: Yes Vital Signs: Vital Signs x48h Temp Pulse Resp BP Pulse Ox 02/07/17 12:30 36.8 C 64 16 153/70 H 98 02/07/17 08:42 36.7 C 69 16 172/97 H 95 02/07/17 05:35 36.7 C 66 16 161/77 H 98 Intake & Output: Intake and Output Totals x24h 02/05/17 02/06/17 02/07/17 23:59 23:59 23:59 Intake Total 2688 2739 940 Output Total 1900 2250 400 Balance 788 489 540 - Lab Results Other Lab Results: Lab Results x24hrs 02/07/17 02/07/17 02/06/17 Range/Units 11:20 07:39 20:22 POC Whole Bld Glucose 142 H 133 H 161 H (70 - 100) mg/dL 02/06/17 Range/Units 16:24 POC Whole Bld Glucose 115 H (70 - 100) mg/dL - Current Medications Current Medications: Current Medications Generic Name Dose Route Start Last Admin Trade Name Freq PRN Reason Stop Dose Admin Carvedilol 6.25 mg 02/04/17 21:00 02/07/17 10:14 Coreg PO 6.25 mg BID JOSE Administration Enoxaparin Sodium 40 mg 02/05/17 09:00 02/07/17 10:15 Lovenox SUBQ 40 mg DAILY JOSE Administration Eplerenone 25 mg 02/05/17 09:00 02/07/17 10:15 Inspra PO 25 mg DAILY JOSE Administration Acetaminophen 100 mls @ 400 mls/hr 02/04/17 14:00 02/07/17 12:08 Ofirmev IV Not Given Q6H [facility] Insulin Aspart 1 - 9 unit 02/04/17 17:00 02/07/17 12:02 Novolog SUBQ 1 unit 0800,1200,1700,2100 JOSE Administration Protocol Losartan Potassium 100 mg 02/05/17 09:00 02/07/17 10:15 Cozaar PO 100 mg DAILY JOSE Administration Morphine Sulfate/Sodium Chloride 0 mg 02/04/17 13:57 02/04/17 16:18 Morphine Quality Assurance Test Program Manager (Use Quality Assurance Test Program Manager Order Set) IV 50 mg POCKET CUTTER PRN Administration PAIN Protocol Senna 8.6 mg 02/07/17 10:42 02/07/17 12:03 Senokot PO 8.6 mg DAILY PRN Administration Constipation Sodium Chloride 10 ml 02/04/17 13:57 02/06/17 20:10 Normal Saline Flush 0.9% IVP 10 ml PRN PRN Administration NEEDED PER PROVIDER ORDERS Sodium Chloride 10 ml 02/04/17 14:00 02/07/17 07:06 Normal Saline Flush 0.9% IVP 10 ml Q8HR JOSE Administration Tamsulosin HCl 0.4 mg 02/04/17 21:00 02/06/17 21:12 Flomax PO 0.4 mg QPM JOSE Administration - Physical Exam Wound/Incisions: positive: Healing well General Appearance: positive: No acute distress Respiratory: positive: No respiratory distress Cardiovascular: positive: Regular rate & rhythm Abdomen: positive: Other (soft, non-distended, non-tender to palpation) Extremities: positive: No pedal edema Neurologic/Psychiatric: positive: Oriented x3 Impression/Plan - Problem List Problem List: s/p lap extended right hemicolectomy POD3 - awaiting bowel function. Start Senna today. Encourage ambulation - continue clear liquids - pain well controlled with IV tylenol - lovenox DVT prophylaxis - pepcid GI prophylaxis
[2017-02-07] MEDS: TAMSULOSIN 0.4 MG CAPSULE PO SCH (20:45)
[2017-02-08] MEDS: ACETAMINOPHEN 1,000 MG/100 ML 100 ML IV SCH ×4 (03:30→19:55)
[2017-02-08] MEDS ORDERED: MAGNESIUM HYDROXIDE 2,400 MG/30 ML UDC PO SCH (04:44)
[2017-02-08] MEDS: SENNA 8.6 MG TABLET PO SCH ×3 (06:50→16:44)
[2017-02-08] MEDS: SODIUM CHLORIDE FLUSH 0.9% 10 ML SYRINGE IVP SCH ×3 (06:57→20:31)
[2017-02-08] MEDS: INSULIN ASPART 300 UNIT/3 ML PEN SUBQ SCH ×4 (08:01→20:31)
[2017-02-08] MEDS: CARVEDILOL 3.125 MG TABLET PO SCH ×2 (08:02→20:30)
[2017-02-08] MEDS: LOSARTAN 50 MG TABLET PO SCH (08:02)
[2017-02-08] MEDS: EPLERENONE 25 MG TABLET PO SCH (08:03)
[2017-02-08] MEDS: ENOXAPARIN 40 MG/0.4 ML SYRINGE SUBQ SCH (08:03)
--- NOTE | 2017-02-08 10:35 | Discharge Plan ---
Discharge Plan Disposition: 01 Home, Self Care Condition: Good Prescriptions: Senna [Senokot] 17.2 - 25.8 mg PO Q6H #30 tablet Diet: Soft Shower Restrictions: Yes (no tube bathing 1 wk) Driving Restrictions: No Weight Bearing: Full Weight Instruction Topics: Diet Soft Dc No Smoking: If you smoke, Please STOP! Call for help. Follow-up with: YOU MCCALLUM MD [Provider Admit Priv/Credential] - 2 Weeks
[2017-02-08] MEDS: ONDANSETRON ODT 4 MG TABLET TL PRN ×2 (13:48→17:34)
[2017-02-08] MEDS ORDERED: PROMETHAZINE INJ 12.5 MG in SODIUM CHLORIDE 0.9% 50 ML IV PRN (20:01)
[2017-02-08] MEDS: TAMSULOSIN 0.4 MG CAPSULE PO SCH (20:30)
[2017-02-08] MEDS: PROCHLORPERAZINE 10 MG/2 ML VIAL IVP PRN (20:30)
[2017-02-09] MEDS: SENNA 8.6 MG TABLET PO SCH (00:35)
[2017-02-09] MEDS: ACETAMINOPHEN 1,000 MG/100 ML 100 ML IV SCH ×4 (01:55→19:59)
[2017-02-09] MEDS: PROCHLORPERAZINE 10 MG/2 ML VIAL IVP PRN (04:13)
[2017-02-09] MEDS: SODIUM CHLORIDE FLUSH 0.9% 10 ML SYRINGE IVP SCH ×3 (04:13→20:47)
[2017-02-09] MEDS: INSULIN ASPART 300 UNIT/3 ML PEN SUBQ SCH (07:59)
[2017-02-09 10:07] LABS: BASOPHILS % (AUTO) 0.3 %; EOSINOPHILS # (AUTO) 0.2 10^3/uL (0.0-0.7); EOSINOPHILS % (AUTO) 1.5 %; HCT - HEMATOCRIT 40.8 % (42.0-52.0); HGB - HEMOGLOBIN 13.4 g/dL (14.0-18.0); LYMPHOCYTES # (AUTO) 0.9 10^3/uL (1.5-3.5); LYMPHOCYTES % (AUTO) 7.4 %; MEAN CORPUSCULAR HEMOGLOBIN 27.1 pg (27.0-31.0); MEAN CORPUSCULAR HGB CONC 32.9 g/dL (32.0-36.0); MEAN CORPUSCULAR VOLUME 82.3 fL (80.0-94.0); MEAN PLATELET VOLUME 7.8 fL (7.4-11.4); MONOCYTES # (AUTO) 1.2 10^3/uL (0.0-1.0); MONOCYTES % (AUTO) 9.8 %; NEUTROPHILS # (AUTO) 9.8 10^3/uL (1.5-6.6); RED BLOOD COUNT 4.95 10^6/uL (4.70-6.10); RED CELL DISTRIBUTION WIDTH 15.2 % (12.0-15.0); UNCORRECTED WHITE BLOOD COUNT 12.2 x10^3/uL; WHITE BLOOD COUNT 12.2 x10^3/uL (4.8-10.8)
[2017-02-09 10:19] LABS: ALBUMIN/GLOBULIN RATIO 0.9 (1.0-2.2); BILIRUBIN,TOTAL 1.9 mg/dL (0.2-1.0); CALCIUM 8.7 mg/dL (8.5-10.3); CREATININE 1.8 mg/dL (0.6-1.2); POTASSIUM 3.9 mmol/L (3.5-5.0); TOTAL PROTEIN 6.8 g/dL (6.7-8.2)
[2017-02-09] MEDS ORDERED: SODIUM CHLORIDE 0.9% 500 ML IV ONE ×2 (10:36→10:56)
[2017-02-09] MEDS ORDERED: SODIUM CHLORIDE 0.9% 1,000 ML IV ONE (10:56)
[2017-02-09] MEDS: LOSARTAN 50 MG TABLET PO SCH (10:56)
[2017-02-09] MEDS: SODIUM CHLORIDE 0.9% 1,000 ML IV SCH ×2 (10:57→20:47)
[2017-02-09] MEDS: ENOXAPARIN 40 MG/0.4 ML SYRINGE SUBQ SCH (10:57)
[2017-02-09] MEDS: SODIUM CHLORIDE FLUSH 0.9% 10 ML SYRINGE IVP PRN (10:57)
[2017-02-09] MEDS: EPLERENONE 25 MG TABLET PO SCH (10:57)
[2017-02-09] MEDS: CARVEDILOL 3.125 MG TABLET PO SCH ×2 (10:57→20:47)
--- NOTE | 2017-02-09 11:11 | XRAY Preliminary Report ---
Exam: XR Abdomen Acute IMPRESSION: 1. No acute process identified in the chest. 2. Multiple dilated loops of small bowel with associated air-fluid levels suggests small bowel obstru ction versus ileus. No evidence of bowel perforation. [facility] SITE ID: [id number]
--- NOTE | 2017-02-09 11:13 | XRAY Report ---
EXAM: ABDOMINAL SERIES AND PA CHEST EXAM DATE: 02/09/2017 10:02 AM. CLINICAL HISTORY: Abdominal distension. Colon resection 6 days ago. COMPARISON: Chest x-ray 12/26/[address] of the abdomen and pelvis 05/21/2016. TECHNIQUE: 3 views abdomen and 1 view chest. FINDINGS: CHEST: Lungs/Pleura: No focal opacities. No effusion or pneumothorax. Mediastinum: Within exam limitations, cardiomediastinal contour is normal. Stable left-sided dual-ed d pacemaker. ABDOMEN: Bowel Gas Pattern: There are multiple dilated loops of small bowel seen in the central abdomen with a ssociated air-fluid levels. Small bowel diameters measure up to about 4 cm. Gas is seen within normal caliber colon. Free Air: None. Other: Cervical spine fusion hardware noted. Radiation therapy seeds noted in the prostate gland. No acute bony abnormality identified. Degenerative changes noted at both hips. IMPRESSION: 1. No acute process identified in the chest. 2. Multiple dilated loops of small bowel with associated air-fluid levels suggests small bowel obstru ction versus ileus. No evidence of bowel perforation. [facility] Referring Provider Line: [phone] SITE ID: [id number]
[2017-02-09] MEDS: INSULIN REGULAR HUMAN 100 UNIT/1 ML 10 ML MDV SUBQ SCH ×2 (13:26→18:42)
[2017-02-09] MEDS: TAMSULOSIN 0.4 MG CAPSULE PO SCH (20:47)
--- NOTE | 2017-02-10 00:01 | PROVIDER PROGRESS NOTE ---
Subjective - General Admit Date: 02/04/17 Procedure Date: 02/04/17 Post Op Days: 5 Procedure Performed: Laparoscopic estended right hemicolectomy - Review of Systems Wound/Incisions: positive: Healing well General: positive: No symptoms Cardiovascular: positive: No symptoms Gastrointestinal: positive: Nausea, Vomiting, Diarrhea. negative: Flatus Genitourinary: positive: No symptoms, Other. negative: Retention Psychiatric: positive: No symptoms Objective - Patient Data Vital Signs: Vital Signs x48h Temp Pulse Resp BP Pulse Ox 02/09/17 20:23 37.3 C 73 20 129/69 93 Intake & Output: Intake and Output Totals x24h 02/07/17 02/08/17 02/09/17 23:59 23:59 23:59 Intake Total 0 20693 Output Total 400 275 Balance 1939 2069 1877 - Lab Results Lab Results: 02/09/17 10:00 02/09/17 10:00 Other Lab Results: Lab Results x24hrs 02/09/17 02/09/17 02/09/17 Range/Units 23:50 20:20 18:35 WBC (4.8-10.8) x10^3/uL RBC (4.70-6.10) 10^6/uL Hgb (14.0-18.0) g/dL Hct (42.0-52.0) % MCV (80.0-94.0) fL MCH (27.0-31.0) pg MCHC (32.0-36.0) g/dL RDW (12.0-15.0) % Plt Count (130-450) 10^3/uL MPV (7.4-11.4) fL Neut # (1.5-6.6) 10^3/uL Lymph # (1.5-3.5) 10^3/uL [place] # (0.0-1.0) 10^3/uL Eos # (0.0-0.7) 10^3/uL Baso # (0.0-0.1) 10^3/uL Absolute Nucleated RBC x10^3/uL Nucleated RBCs /100WBC Sodium (135-145) mmol/L Potassium (3.5-5.0) mmol/L Chloride (101-111) mmol/L Carbon Dioxide (21-32) mmol/L Anion Gap (6-13) BUN (6-20) mg/dL Creatinine (0.6-1.2) mg/dL Estimated GFR (MDRD) (>89) Glucose (70-100) mg/dL POC Whole Bld Glucose 156 H 153 H 133 H (70 - 100) mg/dL Calcium (8.5-10.3) mg/dL Total Bilirubin (0.2-1.0) mg/dL AST (10-42) IU/L ALT (10-60) IU/L Alkaline Phosphatase (42-121) IU/L Total Protein (6.7-8.2) g/dL Albumin (3.2-5.5) g/dL Globulin (2.1-4.2) g/dL Albumin/Globulin Ratio (1.0-2.2) 02/09/17 02/09/17 02/09/17 Range/Units 11:23 10:00 10:00 WBC 12.2 H (4.8-10.8) x10^3/uL RBC 4.95 (4.70-6.10) 10^6/uL Hgb 13.4 L (14.0-18.0) g/dL Hct 40.8 L (42.0-52.0) % MCV 82.3 (80.0-94.0) fL MCH 27.1 (27.0-31.0) pg MCHC 32.9 (32.0-36.0) g/dL RDW 15.2 H (12.0-15.0) % Plt Count 256 (130-450) 10^3/uL MPV 7.8 (7.4-11.4) fL Neut # 9.8 H (1.5-6.6) 10^3/uL Lymph # 0.9 L (1.5-3.5) 10^3/uL [place] # 1.2 H (0.0-1.0) 10^3/uL Eos # 0.2 (0.0-0.7) 10^3/uL Baso # 0.0 (0.0-0.1) 10^3/uL Absolute Nucleated RBC 0.00 x10^3/uL Nucleated RBCs 0.0 /100WBC Sodium 137 (135-145) mmol/L Potassium 3.9 (3.5-5.0) mmol/L Chloride 100 L (101-111) mmol/L Carbon Dioxide 25 (21-32) mmol/L Anion Gap 12.0 (6-13) BUN 26 H (6-20) mg/dL Creatinine 1.8 H (0.6-1.2) mg/dL Estimated GFR (MDRD) 38 L (>89) Glucose 214 H (70-100) mg/dL POC Whole Bld Glucose 193 H (70 - 100) mg/dL Calcium 8.7 (8.5-10.3) mg/dL Total Bilirubin 1.9 H (0.2-1.0) mg/dL AST 26 (10-42) IU/L ALT 16 (10-60) IU/L Alkaline Phosphatase 63 (42-121) IU/L Total Protein 6.8 (6.7-8.2) g/dL Albumin 3.2 (3.2-5.5) g/dL Globulin 3.6 (2.1-4.2) g/dL Albumin/Globulin Ratio 0.9 L (1.0-2.2) 02/09/17 Range/Units 07:39 WBC (4.8-10.8) x10^3/uL RBC (4.70-6.10) 10^6/uL Hgb (14.0-18.0) g/dL Hct (42.0-52.0) % MCV (80.0-94.0) fL MCH (27.0-31.0) pg MCHC (32.0-36.0) g/dL RDW (12.0-15.0) % Plt Count (130-450) 10^3/uL MPV (7.4-11.4) fL Neut # (1.5-6.6) 10^3/uL Lymph # (1.5-3.5) 10^3/uL [place] # (0.0-1.0) 10^3/uL Eos # (0.0-0.7) 10^3/uL Baso # (0.0-0.1) 10^3/uL Absolute Nucleated RBC x10^3/uL Nucleated RBCs /100WBC Sodium (135-145) mmol/L Potassium (3.5-5.0) mmol/L Chloride (101-111) mmol/L Carbon Dioxide (21-32) mmol/L Anion Gap (6-13) BUN (6-20) mg/dL Creatinine (0.6-1.2) mg/dL Estimated GFR (MDRD) (>89) Glucose (70-100) mg/dL POC Whole Bld Glucose 194 H (70 - 100) mg/dL Calcium (8.5-10.3) mg/dL Total Bilirubin (0.2-1.0) mg/dL AST (10-42) IU/L ALT (10-60) IU/L Alkaline Phosphatase (42-121) IU/L Total Protein (6.7-8.2) g/dL Albumin (3.2-5.5) g/dL Globulin (2.1-4.2) g/dL Albumin/Globulin Ratio (1.0-2.2) - Imaging Results Radiology Imaging: positive: Other (AAS - ileus) - Current Medications Current Medications: Current Medications Generic Name Dose Route Start Last Admin Trade Name Freq PRN Reason Stop Dose Admin Carvedilol 6.25 mg 02/04/17 21:00 02/09/17 20:47 Coreg PO 6.25 mg BID JOSE Administration Enoxaparin Sodium 40 mg 02/05/17 09:00 02/09/17 10:57 Lovenox SUBQ 40 mg DAILY JOSE Administration Eplerenone 25 mg 02/05/17 09:00 02/09/17 10:57 Inspra PO 25 mg DAILY JOSE Administration Acetaminophen 100 mls @ 400 mls/hr 02/04/17 14:00 02/09/17 19:59 Ofirmev IV Not Given Q6H JOSE Sodium Chloride 1,000 mls @ 125 mls/hr 02/09/17 11:00 02/09/17 20:47 Normal Saline 0.9% IV 125 mls/hr .Q8H JOSE Administration Insulin Human Regular 1 - 9 unit 02/09/17 12:00 02/09/17 18:42 Novolin R SUBQ Not Given Q6HR JOSE Protocol Losartan Potassium 100 mg 02/05/17 09:00 02/09/17 10:56 Cozaar PO 100 mg DAILY JOSE Administration Morphine Sulfate/Sodium Chloride 0 mg 02/04/17 13:57 02/04/17 16:18 Morphine Logging Supervisor (Use Logging Supervisor Order Set) IV 50 mg SURG RN PRN Administration PAIN Protocol Ondansetron HCl 4 mg 02/08/17 13:34 02/08/17 17:34 Zofran Odt TL 4 mg Q4HR PRN Administration Nausea / Vomiting Prochlorperazine Edisylate 10 mg 02/08/17 20:03 02/09/17 04:13 Compazine Inj IVP 10 mg Q6HR PRN Administration Nausea / Vomiting Senna 8.6 mg 02/07/17 10:42 02/07/17 12:03 Senokot PO 8.6 mg DAILY PRN Administration Constipation Sodium Chloride 10 ml 02/04/17 13:57 02/09/17 10:57 Normal Saline Flush 0.9% IVP 10 ml PRN PRN Administration NEEDED PER PROVIDER ORDERS Sodium Chloride 10 ml 02/04/17 14:00 02/09/17 20:47 Normal Saline Flush 0.9% IVP Not Given Q8HR JOSE Tamsulosin HCl 0.4 mg 02/04/17 21:00 02/09/17 20:47 Flomax PO 0.4 mg QPM JOSE Administration - Physical Exam Wound/Incisions: positive: Healing well Abdomen: positive: Non-tender, Other (minimal distension few bs) Impression/Plan - Problem List Problem List: s/p laparoscopic colon resection. He has some loose stools but continues to have nausea/vomiting. Acute abdominal series - ileus. Will make npo/iv fluids until ileus resolves. Mobilize patient. Cr elevated - hydrate patient. WBC continue to evaluate for infection
[2017-02-10] MEDS: INSULIN REGULAR HUMAN 100 UNIT/1 ML 10 ML MDV SUBQ SCH ×2 (00:23→06:32)
[2017-02-10] MEDS: ACETAMINOPHEN 1,000 MG/100 ML 100 ML IV SCH ×4 (02:32→20:59)
[2017-02-10] MEDS: SODIUM CHLORIDE 0.9% 1,000 ML IV SCH ×3 (03:33→21:07)
[2017-02-10 05:06] LABS: BASOPHILS % (AUTO) 0.7 %; EOSINOPHILS # (AUTO) 0.2 10^3/uL (0.0-0.7); EOSINOPHILS % (AUTO) 3.1 %; HCT - HEMATOCRIT 36.2 % (42.0-52.0); LYMPHOCYTES % (AUTO) 14.6 %; MEAN CORPUSCULAR HEMOGLOBIN 27.6 pg (27.0-31.0); MEAN CORPUSCULAR HGB CONC 33.1 g/dL (32.0-36.0); MEAN CORPUSCULAR VOLUME 83.4 fL (80.0-94.0); MEAN PLATELET VOLUME 7.8 fL (7.4-11.4); MONOCYTES % (AUTO) 13.9 %; NEUTROPHILS # (AUTO) 4.6 10^3/uL (1.5-6.6); NEUTROPHILS % (AUTO) 67.7 %; RED BLOOD COUNT 4.34 10^6/uL (4.70-6.10); RED CELL DISTRIBUTION WIDTH 15.3 % (12.0-15.0); UNCORRECTED WHITE BLOOD COUNT 6.9 x10^3/uL; WHITE BLOOD COUNT 6.9 x10^3/uL (4.8-10.8)
[2017-02-10 05:17] LABS: ALBUMIN/GLOBULIN RATIO 0.9 (1.0-2.2); BILIRUBIN,TOTAL 2.1 mg/dL (0.2-1.0); CALCIUM 7.9 mg/dL (8.5-10.3); CREATININE 1.4 mg/dL (0.6-1.2); POTASSIUM 3.6 mmol/L (3.5-5.0); TOTAL PROTEIN 6.2 g/dL (6.7-8.2)
[2017-02-10] MEDS: SODIUM CHLORIDE FLUSH 0.9% 10 ML SYRINGE IVP SCH ×3 (06:21→21:00)
--- NOTE | 2017-02-10 09:35 | PROVIDER PROGRESS NOTE ---
Subjective - General Admit Date: 02/04/17 Procedure Date: 02/04/17 Post Op Days: 6 Procedure Performed: Laparoscopic estended right hemicolectomy - Review of Systems Wound/Incisions: positive: Healing well General: positive: No symptoms Cardiovascular: positive: No symptoms Gastrointestinal: negative: Flatus Genitourinary: positive: No symptoms, Other. negative: Retention Psychiatric: positive: No symptoms Objective - Patient Data Vital Signs: Vital Signs x48h Temp Pulse Resp BP Pulse Ox 02/10/17 08:03 36.7 C 65 16 144/69 H 98 02/10/17 05:00 36.8 C 86 16 131/56 H 97 Intake & Output: Intake and Output Totals x24h 02/08/17 02/09/17 02/10/17 23:59 23:59 23:59 Intake Total 2070 2153 1071 Output Total 275 100 Balance 2070 1878 971 - Lab Results Lab Results: 02/10/17 04:47 02/10/17 04:47 Other Lab Results: Lab Results x24hrs 02/10/17 02/10/17 02/10/17 Range/Units 06:08 04:47 04:47 WBC 6.9 (4.8-10.8) x10^3/uL RBC 4.34 L (4.70-6.10) 10^6/uL Hgb 12.0 L (14.0-18.0) g/dL Hct 36.2 L (42.0-52.0) % MCV 83.4 (80.0-94.0) fL MCH 27.6 (27.0-31.0) pg MCHC 33.1 (32.0-36.0) g/dL RDW 15.3 H (12.0-15.0) % Plt Count 202 (130-450) 10^3/uL MPV 7.8 (7.4-11.4) fL Neut # 4.6 (1.5-6.6) 10^3/uL Lymph # 1.0 L (1.5-3.5) 10^3/uL [place] # 1.0 (0.0-1.0) 10^3/uL Eos # 0.2 (0.0-0.7) 10^3/uL Baso # 0.0 (0.0-0.1) 10^3/uL Absolute Nucleated RBC 0.00 x10^3/uL Nucleated RBCs 0.0 /100WBC Sodium 138 (135-145) mmol/L Potassium 3.6 (3.5-5.0) mmol/L Chloride 105 (101-111) mmol/L Carbon Dioxide 25 (21-32) mmol/L Anion Gap 8.0 (6-13) BUN 28 H (6-20) mg/dL Creatinine 1.4 H (0.6-1.2) mg/dL Estimated GFR (MDRD) 51 L (>89) Glucose 159 H (70-100) mg/dL POC Whole Bld Glucose 144 H (70 - 100) mg/dL Calcium 7.9 L (8.5-10.3) mg/dL Total Bilirubin 2.1 H (0.2-1.0) mg/dL AST 20 (10-42) IU/L ALT 14 (10-60) IU/L Alkaline Phosphatase 55 (42-121) IU/L Total Protein 6.2 L (6.7-8.2) g/dL Albumin 3.0 L (3.2-5.5) g/dL Globulin 3.2 (2.1-4.2) g/dL Albumin/Globulin Ratio 0.9 L (1.0-2.2) 02/09/17 02/09/17 02/09/17 Range/Units 23:50 20:20 18:35 WBC (4.8-10.8) x10^3/uL RBC (4.70-6.10) 10^6/uL Hgb (14.0-18.0) g/dL Hct (42.0-52.0) % MCV (80.0-94.0) fL MCH (27.0-31.0) pg MCHC (32.0-36.0) g/dL RDW (12.0-15.0) % Plt Count (130-450) 10^3/uL MPV (7.4-11.4) fL Neut # (1.5-6.6) 10^3/uL Lymph # (1.5-3.5) 10^3/uL [place] # (0.0-1.0) 10^3/uL Eos # (0.0-0.7) 10^3/uL Baso # (0.0-0.1) 10^3/uL Absolute Nucleated RBC x10^3/uL Nucleated RBCs /100WBC Sodium (135-145) mmol/L Potassium (3.5-5.0) mmol/L Chloride (101-111) mmol/L Carbon Dioxide (21-32) mmol/L Anion Gap (6-13) BUN (6-20) mg/dL Creatinine (0.6-1.2) mg/dL Estimated GFR (MDRD) (>89) Glucose (70-100) mg/dL POC Whole Bld Glucose 156 H 153 H 133 H (70 - 100) mg/dL Calcium (8.5-10.3) mg/dL Total Bilirubin (0.2-1.0) mg/dL AST (10-42) IU/L ALT (10-60) IU/L Alkaline Phosphatase (42-121) IU/L Total Protein (6.7-8.2) g/dL Albumin (3.2-5.5) g/dL Globulin (2.1-4.2) g/dL Albumin/Globulin Ratio (1.0-2.2) 02/09/17 02/09/17 02/09/17 Range/Units 11:23 10:00 10:00 WBC 12.2 H (4.8-10.8) x10^3/uL RBC 4.95 (4.70-6.10) 10^6/uL Hgb 13.4 L (14.0-18.0) g/dL Hct 40.8 L (42.0-52.0) % MCV 82.3 (80.0-94.0) fL MCH 27.1 (27.0-31.0) pg MCHC 32.9 (32.0-36.0) g/dL RDW 15.2 H (12.0-15.0) % Plt Count 256 (130-450) 10^3/uL MPV 7.8 (7.4-11.4) fL Neut # 9.8 H (1.5-6.6) 10^3/uL Lymph # 0.9 L (1.5-3.5) 10^3/uL [place] # 1.2 H (0.0-1.0) 10^3/uL Eos # 0.2 (0.0-0.7) 10^3/uL Baso # 0.0 (0.0-0.1) 10^3/uL Absolute Nucleated RBC 0.00 x10^3/uL Nucleated RBCs 0.0 /100WBC Sodium 137 (135-145) mmol/L Potassium 3.9 (3.5-5.0) mmol/L Chloride 100 L (101-111) mmol/L Carbon Dioxide 25 (21-32) mmol/L Anion Gap 12.0 (6-13) BUN 26 H (6-20) mg/dL Creatinine 1.8 H (0.6-1.2) mg/dL Estimated GFR (MDRD) 38 L (>89) Glucose 214 H (70-100) mg/dL POC Whole Bld Glucose 193 H (70 - 100) mg/dL Calcium 8.7 (8.5-10.3) mg/dL Total Bilirubin 1.9 H (0.2-1.0) mg/dL AST 26 (10-42) IU/L ALT 16 (10-60) IU/L Alkaline Phosphatase 63 (42-121) IU/L Total Protein 6.8 (6.7-8.2) g/dL Albumin 3.2 (3.2-5.5) g/dL Globulin 3.6 (2.1-4.2) g/dL Albumin/Globulin Ratio 0.9 L (1.0-2.2) - Current Medications Current Medications: Current Medications Generic Name Dose Route Start Last Admin Trade Name Freq PRN Reason Stop Dose Admin Carvedilol 6.25 mg 02/04/17 21:00 02/09/17 20:47 Coreg PO 6.25 mg BID JOSE Administration Enoxaparin Sodium 40 mg 02/05/17 09:00 02/09/17 10:57 Lovenox SUBQ 40 mg DAILY JOSE Administration Eplerenone 25 mg 02/05/17 09:00 02/09/17 10:57 Inspra PO 25 mg DAILY JOSE Administration Acetaminophen 100 mls @ 400 mls/hr 02/04/17 14:00 02/10/17 07:34 Ofirmev IV Not Given Q6H [facility] Insulin Human Regular 1 - 9 unit 02/09/17 12:00 02/10/17 06:32 Novolin R SUBQ 1 unit Q6HR JOSE Administration Protocol Losartan Potassium 100 mg 02/05/17 09:00 02/09/17 10:56 Cozaar PO 100 mg DAILY JOSE Administration Morphine Sulfate/Sodium Chloride 0 mg 02/04/17 13:57 02/04/17 16:18 Morphine Medical Receptionist Assistant (Use Medical Receptionist Assistant Order Set) IV 50 mg GAS STATION CASHIER PRN Administration PAIN Protocol Ondansetron HCl 4 mg 02/08/17 13:34 02/08/17 17:34 Zofran Odt TL 4 mg Q4HR PRN Administration Nausea / Vomiting Prochlorperazine Edisylate 10 mg 02/08/17 20:03 02/09/17 04:13 Compazine Inj IVP 10 mg Q6HR PRN Administration Nausea / Vomiting Senna 8.6 mg 02/07/17 10:42 02/07/17 12:03 Senokot PO 8.6 mg DAILY PRN Administration Constipation Sodium Chloride 10 ml 02/04/17 13:57 02/09/17 10:57 Normal Saline Flush 0.9% IVP 10 ml PRN PRN Administration NEEDED PER PROVIDER ORDERS Sodium Chloride 10 ml 02/04/17 14:00 02/10/17 06:21 Normal Saline Flush 0.9% IVP Not Given Q8HR JOSE Tamsulosin HCl 0.4 mg 02/04/17 21:00 02/09/17 20:47 Flomax PO 0.4 mg QPM JOSE Administration - Physical Exam Wound/Incisions: positive: Healing well Abdomen: positive: Non-tender Impression/Plan - Problem List Problem List: s/p extended right hemicolectomy. Appears much improved today with bowel rest. Now with without nausea, vomiting, or abdominal distension. Hungry. + flatus. Cr improved with WBC normalizing with hydration. Start liquids again. ambulate.
[2017-02-10] MEDS: EPLERENONE 25 MG TABLET PO SCH (09:48)
[2017-02-10] MEDS: LOSARTAN 50 MG TABLET PO SCH (09:48)
[2017-02-10] MEDS: CARVEDILOL 3.125 MG TABLET PO SCH ×2 (09:48→21:00)
[2017-02-10] MEDS: ENOXAPARIN 40 MG/0.4 ML SYRINGE SUBQ SCH (09:49)
[2017-02-10] MEDS: INSULIN ASPART 300 UNIT/3 ML PEN SUBQ SCH ×3 (11:25→20:59)
[2017-02-10] MEDS: TAMSULOSIN 0.4 MG CAPSULE PO SCH (21:00)
[2017-02-11] MEDS: ACETAMINOPHEN 1,000 MG/100 ML 100 ML IV SCH ×3 (02:19→07:50)
[2017-02-11 05:55] LABS: BASOPHILS % (AUTO) 0.8 %; EOSINOPHILS # (AUTO) 0.2 10^3/uL (0.0-0.7); EOSINOPHILS % (AUTO) 2.8 %; HCT - HEMATOCRIT 34.5 % (42.0-52.0); HGB - HEMOGLOBIN 11.5 g/dL (14.0-18.0); LYMPHOCYTES # (AUTO) 0.9 10^3/uL (1.5-3.5); LYMPHOCYTES % (AUTO) 16.4 %; MEAN CORPUSCULAR HEMOGLOBIN 27.6 pg (27.0-31.0); MEAN CORPUSCULAR HGB CONC 33.2 g/dL (32.0-36.0); MEAN CORPUSCULAR VOLUME 83.3 fL (80.0-94.0); MONOCYTES # (AUTO) 0.7 10^3/uL (0.0-1.0); MONOCYTES % (AUTO) 13.5 %; NEUTROPHILS # (AUTO) 3.7 10^3/uL (1.5-6.6); NEUTROPHILS % (AUTO) 66.5 %; RED BLOOD COUNT 4.15 10^6/uL (4.70-6.10); UNCORRECTED WHITE BLOOD COUNT 5.5 x10^3/uL; WHITE BLOOD COUNT 5.5 x10^3/uL (4.8-10.8)
[2017-02-11 06:10] LABS: ALBUMIN/GLOBULIN RATIO 0.8 (1.0-2.2); BILIRUBIN,TOTAL 1.6 mg/dL (0.2-1.0); CREATININE 1.2 mg/dL (0.6-1.2); TOTAL PROTEIN 6.1 g/dL (6.7-8.2)
[2017-02-11] MEDS: SODIUM CHLORIDE FLUSH 0.9% 10 ML SYRINGE IVP SCH ×2 (06:40→07:20)
[2017-02-11] MEDS: SODIUM CHLORIDE 0.9% 1,000 ML IV SCH (07:23)
--- NOTE | 2017-02-11 08:02 | PROVIDER PROGRESS NOTE ---
Subjective - General Admit Date: 02/04/17 Procedure Date: 02/04/17 Post Op Days: 7 Procedure Performed: Laparoscopic estended right hemicolectomy - Review of Systems Wound/Incisions: positive: Healing well General: positive: No symptoms Cardiovascular: positive: No symptoms Gastrointestinal: positive: Flatus. negative: Nausea, Abdominal pain Genitourinary: positive: No symptoms, Other. negative: Retention Psychiatric: positive: No symptoms - Other Other Information/Narrative: Feeling much better as of yesterday. Tolerating clear liquids. No nausea, no emesis Objective - Patient Data Reviewed Vital Signs: Yes Vital Signs: Vital Signs x48h Temp Pulse Resp BP Pulse Ox 02/11/17 05:00 37.0 C 60 16 140/72 H 97 02/11/17 01:00 36.9 C 61 16 107/49 L 95 Intake & Output: Intake and Output Totals x24h 02/09/17 02/10/17 02/11/17 23:59 23:59 23:59 Intake Total 2153 4454 701 Output Total 275 865 200 Balance 1878 3589 501 - Lab Results Lab Results: 02/11/17 05:25 02/11/17 05:25 Other Lab Results: Lab Results x24hrs 02/11/17 02/11/17 02/11/17 Range/Units 07:47 05:25 05:25 WBC (4.8-10.8) x10^3/uL RBC (4.70-6.10) 10^6/uL Hgb (14.0-18.0) g/dL Hct (42.0-52.0) % MCV (80.0-94.0) fL MCH (27.0-31.0) pg MCHC (32.0-36.0) g/dL RDW (12.0-15.0) % Plt Count (130-450) 10^3/uL MPV (7.4-11.4) fL Neut # (1.5-6.6) 10^3/uL Lymph # (1.5-3.5) 10^3/uL [place] # (0.0-1.0) 10^3/uL Eos # (0.0-0.7) 10^3/uL Baso # (0.0-0.1) 10^3/uL Absolute Nucleated RBC x10^3/uL Nucleated RBCs /100WBC Sodium 139 (135-145) mmol/L Potassium 4.0 (3.5-5.0) mmol/L Chloride 110 (101-111) mmol/L Carbon Dioxide 23 (21-32) mmol/L Anion Gap 6.0 (6-13) BUN 19 (6-20) mg/dL Creatinine 1.2 (0.6-1.2) mg/dL Estimated GFR (MDRD) 61 L (>89) Glucose 149 H (70-100) mg/dL POC Whole Bld Glucose 146 H (70 - 100) mg/dL Calcium 8.0 L (8.5-10.3) mg/dL Total Bilirubin 1.6 H (0.2-1.0) mg/dL Direct Bilirubin 0.3 (0.1-0.5) mg/dL AST 21 (10-42) IU/L ALT 15 (10-60) IU/L Alkaline Phosphatase 55 (42-121) IU/L Total Protein 6.1 L (6.7-8.2) g/dL Albumin 2.8 L (3.2-5.5) g/dL Globulin 3.3 (2.1-4.2) g/dL Albumin/Globulin Ratio 0.8 L (1.0-2.2) 02/11/17 02/10/17 02/10/17 Range/Units 05:25 20:19 16:36 WBC 5.5 (4.8-10.8) x10^3/uL RBC 4.15 L (4.70-6.10) 10^6/uL Hgb 11.5 L (14.0-18.0) g/dL Hct 34.5 L (42.0-52.0) % MCV 83.3 (80.0-94.0) fL MCH 27.6 (27.0-31.0) pg MCHC 33.2 (32.0-36.0) g/dL RDW 15.0 (12.0-15.0) % Plt Count 191 (130-450) 10^3/uL MPV 8.0 (7.4-11.4) fL Neut # 3.7 (1.5-6.6) 10^3/uL Lymph # 0.9 L (1.5-3.5) 10^3/uL [place] # 0.7 (0.0-1.0) 10^3/uL Eos # 0.2 (0.0-0.7) 10^3/uL Baso # 0.0 (0.0-0.1) 10^3/uL Absolute Nucleated RBC 0.00 x10^3/uL Nucleated RBCs 0.0 /100WBC Sodium (135-145) mmol/L Potassium (3.5-5.0) mmol/L Chloride (101-111) mmol/L Carbon Dioxide (21-32) mmol/L Anion Gap (6-13) BUN (6-20) mg/dL Creatinine (0.6-1.2) mg/dL Estimated GFR (MDRD) (>89) Glucose (70-100) mg/dL POC Whole Bld Glucose 158 H 149 H (70 - 100) mg/dL Calcium (8.5-10.3) mg/dL Total Bilirubin (0.2-1.0) mg/dL Direct Bilirubin (0.1-0.5) mg/dL AST (10-42) IU/L ALT (10-60) IU/L Alkaline Phosphatase (42-121) IU/L Total Protein (6.7-8.2) g/dL Albumin (3.2-5.5) g/dL Globulin (2.1-4.2) g/dL Albumin/Globulin Ratio (1.0-2.2) 02/10/ Range/Units 11:15 WBC (4.8-10.8) x10^3/uL RBC (4.70-6.10) 10^6/uL Hgb (14.0-18.0) g/dL Hct (42.0-52.0) % MCV (80.0-94.0) fL MCH (27.0-31.0) pg MCHC (32.0-36.0) g/dL RDW (12.0-15.0) % Plt Count (130-450) 10^3/uL MPV (7.4-11.4) fL Neut # (1.5-6.6) 10^3/uL Lymph # (1.5-3.5) 10^3/uL [place] # (0.0-1.0) 10^3/uL Eos # (0.0-0.7) 10^3/uL Baso # (0.0-0.1) 10^3/uL Absolute Nucleated RBC x10^3/uL Nucleated RBCs /100WBC Sodium (135-145) mmol/L Potassium (3.5-5.0) mmol/L Chloride (101-111) mmol/L Carbon Dioxide (21-32) mmol/L Anion Gap (6-13) BUN (6-20) mg/dL Creatinine (0.6-1.2) mg/dL Estimated GFR (MDRD) (>89) Glucose (70-100) mg/dL POC Whole Bld Glucose 118 H (70 - 100) mg/dL Calcium (8.5-10.3) mg/dL Total Bilirubin (0.2-1.0) mg/dL Direct Bilirubin (0.1-0.5) mg/dL AST (10-42) IU/L ALT (10-60) IU/L Alkaline Phosphatase (42-121) IU/L Total Protein (6.7-8.2) g/dL Albumin (3.2-5.5) g/dL Globulin (2.1-4.2) g/dL Albumin/Globulin Ratio (1.0-2.2) - Current Medications Current Medications: Current Medications Generic Name Dose Route Start Last Admin Trade Name Freq PRN Reason Stop Dose Admin Carvedilol 6.25 mg 02/04/17 21:00 02/10/17 21:00 Coreg PO 6.25 mg BID JOSE Administration Enoxaparin Sodium 40 mg 02/05/17 09:00 02/10/17 09:49 Lovenox SUBQ 40 mg DAILY JOSE Administration Eplerenone 25 mg 02/05/17 09:00 02/10/17 09:48 Inspra PO 25 mg DAILY JOSE Administration Acetaminophen 100 mls @ 400 mls/hr 02/04/17 14:00 02/11/17 07:50 Ofirmev IV Not Given Q6H JOSE Sodium Chloride 1,000 mls @ 100 mls/hr 02/10/17 09:33 02/11/17 07:23 Normal Saline 0.9% IV 100 mls/hr .Q10H JOSE Administration Insulin Aspart 1 - 9 unit 02/10/17 12:00 02/10/17 20:59 Novolog SUBQ 1 unit 0800,1200,1700,2100 JOSE Administration Protocol Losartan Potassium 100 mg 02/05/17 09:00 02/10/17 09:48 Cozaar PO 100 mg DAILY JOSE Administration Morphine Sulfate/Sodium Chloride 0 mg 02/04/17 13:57 02/04/17 16:18 Morphine Pilling Machine Operator (Use Pilling Machine Operator Order Set) IV 50 mg DIRECTOR CAREER PRN Administration PAIN Protocol Ondansetron HCl 4 mg 02/08/17 13:34 02/08/17 17:34 Zofran Odt TL 4 mg Q4HR PRN Administration Nausea / Vomiting Prochlorperazine Edisylate 10 mg 02/08/17 20:03 02/09/17 04:13 Compazine Inj IVP 10 mg Q6HR PRN Administration Nausea / Vomiting Senna 8.6 mg 02/07/17 10:42 02/07/17 12:03 Senokot PO 8.6 mg DAILY PRN Administration Constipation Sodium Chloride 10 ml 02/04/17 13:57 02/09/17 10:57 Normal Saline Flush 0.9% IVP 10 ml PRN PRN Administration NEEDED PER PROVIDER ORDERS Sodium Chloride 10 ml 02/04/17 14:00 02/11/17 07:20 Normal Saline Flush 0.9% IVP Not Given Q8HR [facility] Tamsulosin HCl 0.4 mg 02/04/17 21:00 02/10/17 21:00 Flomax PO 0.4 mg QPM JOSE Administration - Physical Exam Wound/Incisions: positive: Healing well General Appearance: positive: No acute distress Respiratory: positive: No respiratory distress Cardiovascular: positive: Regular rate & rhythm Abdomen: positive: Nml bowel sounds, No distention Extremities: positive: No pedal edema Neurologic/Psychiatric: positive: Oriented x3 Impression/Plan - Problem List Problem List: s/p lap extended right hemicolectomy with post op ileus POD 7 - Advance to soft diet - if no recurrence of symptoms plan DC home this afternoon.
[2017-02-11] MEDS: EPLERENONE 25 MG TABLET PO SCH (08:37)
[2017-02-11] MEDS: LOSARTAN 50 MG TABLET PO SCH (08:37)
[2017-02-11] MEDS: CARVEDILOL 3.125 MG TABLET PO SCH (08:37)
[2017-02-11] MEDS: ENOXAPARIN 40 MG/0.4 ML SYRINGE SUBQ SCH (08:38)
[2017-02-11] MEDS: INSULIN ASPART 300 UNIT/3 ML PEN SUBQ SCH ×2 (08:38→11:49)
[2017-02-11 13:02] VITALS: BP 154/65
--- NOTE | 2017-02-21 16:38 | DISCHARGE SUMMARY ---
DATE OF ADMISSION: 02/04/2017 DATE OF DISCHARGE: 02/11/2017 HOSPITAL COURSE: This is a 66-year-old male who underwent a screening colonoscopy and was noted to have a very large dysplastic polyp which was unable to be removed via colonoscopy. After extensive preoperative workup, he was brought to the operating room for an elective laparoscopic-assisted extended right hemicolectomy. The patient tolerated the procedure well and was transferred to the floor postoperatively. His Hsieh catheter was removed on postoperative day 1 and he was ambulating very well. He was started on clear liquids and his IV fluids discontinued. He continued to ambulate on postoperative day #2, and was not requiring any IV pain medications. 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 He failed to pass any flatus on postoperative day 2 and 3 and was continued on a clear liquid diet. On postop day #4, he was passing a little bit of flatus and had a small bowel movement and was feeling hungry. He was started on a soft diet at this point. Later that day, he began feeling very nauseous. He was provided with Zofran and fluids were resumed. The next 2 days, he was noted to be dehydrated and he was maintained on IV fluids and kept on a clear liquid diet. He was started on a bowel protocol. Began having regular nonbloody bowel movements and was feeling much better. He was then resumed on a soft diet. He is ambulating well with his pain well controlled and with resolution of his ileus on the day of discharge. The patient was discharged home with instructions to followup in my office in 2 weeks or sooner should he have any recurrent problems. He was provided with extensive instruction list on how to take care of himself and his wounds postoperatively. He was provided a prescription for Percocet for pain control, as well as stool softeners. CONDITION ON DISCHARGE: Stable. DISCHARGE DIAGNOSIS: Dysplastic colonic polyp status post laparoscopic-assisted extended right hemicolectomy. JOB #: [id number] EXT JOB #:[id number] DORIS
== END 2017-02-11 14:18 | disposition home or self-care (01) | DRG 330 ==
LOC: MS2 05:58
PROVIDERS: ADMIT Surgery; ATTEND Surgery
PROC: 0DTF4ZZ Resection of Right Large Intestine, Percutaneous Endoscopic Approach (ICD-10-PCS; principal; 2017-02-04 07:30)
DX: D12.3 Benign neoplasm of transverse colon (principal); K91.3 Postprocedural intestinal obstruction; R33.9 Retention of urine, unspecified; Z95.810 Presence of automatic (implantable) cardiac defibrillator; E11.9 Type 2 diabetes mellitus without complications; I10 Essential (primary) hypertension; I25.5 Ischemic cardiomyopathy; G47.30 Sleep apnea, unspecified; Z79.899 Other long term (current) drug therapy; Z79.84 Long term (current) use of oral hypoglycemic drugs; I25.2 Old myocardial infarction; Z85.46 Personal history of malignant neoplasm of prostate; Z95.5 Presence of coronary angioplasty implant and graft; Z87.891 Personal history of nicotine dependence; Z96.653 Presence of artificial knee joint, bilateral; Z90.79 Acquired absence of other genital organ(s)
CPT/HCPCS: 36415; 74022; 80053; 82248; 85025; 86850; 86900; 86901; 87493; 88307

== ENCOUNTER 2017-07-02 13:39 | Outpatient (CLI) | payer BC, MEDICARE | END 2017-07-02 13:40 | disposition home or self-care (01) | LOC: LAB.F 13:39 | PROVIDERS: ATTEND Specialist | DX: Z08 Encounter for follow-up examination after completed treatment for malignant neoplasm (principal); Z85.46 Personal history of malignant neoplasm of prostate; C61 Malignant neoplasm of prostate | CPT/HCPCS: 84153 ==

== ENCOUNTER 2017-11-04 12:30 | Outpatient (CLI) | payer BC ==
--- NOTE | 2017-11-06 08:51 | XRAY Report ---
Procedure Date: 11/04/2017 Accession Number: [id number] / [id number] Procedure: XR - Hips 2V BILAT CPT Code: FULL RESULT: EXAM: PELVIS AND BILATERAL HIPS RADIOGRAPHY EXAM DATE: 11/04/2017 01:20 PM. CLINICAL HISTORY: PAIN IN RIGHT HIP, PAIN IN LEFT HIP. COMPARISON: None. TECHNIQUE: 1 view of the pelvis and 1 view of each hip. FINDINGS: Bones: No acute fracture lines noted. Foci of increased sclerosis seen in the left greater than right iliac bones of unclear etiology. Joints: Normal alignment of the pelvis and hips. Moderate bilateral hip joint space narrowing with osteophytes. Soft Tissues: No soft tissue swelling. Brachytherapy seeds in the prostate. IMPRESSION: 1. No evidence for fracture or dislocation pelvis. 2. Moderate bilateral hip joint osteoarthritis. 3. Foci of sclerosis seen in the bilateral iliac bones of unclear etiology. Correlation with dedicated nuclear bone scan should be considered for further evaluation. RADIA
== END 2017-11-04 12:31 | disposition home or self-care (01) ==
LOC: DI 12:30
PROVIDERS: ATTEND Naturopath
DX: M16.0 Bilateral primary osteoarthritis of hip (principal)
CPT/HCPCS: 73521

== ENCOUNTER 2017-12-18 12:26 | Outpatient (CLI) | payer BC ==
[2017-12-18 17:52] LABS: CREATININE 1.1 mg/dL (0.6-1.2)
== END 2017-12-18 12:27 | disposition home or self-care (01) ==
LOC: LAB.F 12:26
PROVIDERS: ATTEND Specialist
DX: Z08 Encounter for follow-up examination after completed treatment for malignant neoplasm (principal); Z85.46 Personal history of malignant neoplasm of prostate
CPT/HCPCS: 36415; 82565; 84520

== ENCOUNTER 2018-07-14 13:25 | Outpatient (CLI) | payer BC | END 2018-07-14 13:26 | disposition home or self-care (01) | LOC: LAB.F 13:25 | PROVIDERS: ATTEND Specialist | DX: Z08 Encounter for follow-up examination after completed treatment for malignant neoplasm (principal); Z85.46 Personal history of malignant neoplasm of prostate | CPT/HCPCS: 36415; 84153 ==

== ENCOUNTER 2019-01-16 08:00 | Outpatient (CLI) | payer BC | END 2019-01-16 08:01 | disposition short-term general hospital (02) | LOC: EMS 08:00 | PROVIDERS: ATTEND Surgery | DX: R42 Dizziness and giddiness (principal); R53.1 Weakness; R13.10 Dysphagia, unspecified | CPT/HCPCS: A0425; A0427 ==

== ENCOUNTER 2019-06-02 10:13 | Outpatient (CLI) | payer BC ==
--- NOTE | 2019-06-03 19:47 | SLEEP CARE CONSULTATION ---
Information from patient questionnaire entered by Shilpa Cortez. I have reviewed and concur with the information entered by Shilpa Cortez. This document represents the service I personally performed and the decisions made by me, Gisselle Lea MD, [facility]. History of Present Illness Reason for Visit: New patient, Previously diagnosed sleep apnea (AHI 23, moderate, central apnea secondary to obstructive), sleep apnea on CPAP therapy, Re-establish care Chief Complaint: reports: Other (need CPAP update) Duration of Symptoms: 5 years Usual bedtime: 1715 Time it takes to fall asleep: 30 minutes Snores at night: No (using CPAP) Observed to quit breathing while asleep: Yes Sleeps alone due to snoring: No Number of times waking at night: 1 Reasons for waking at night: reports: Bathroom Toss, Turn, or Twitch while sleeping: No Recalls having dreams: Yes Usually gets out of bed at: 0030 Feels refreshed in the morning: Yes Morning headache: No Sleepy or fatigued during the day: No Ever fallen asleep while driving: No Takes day naps: Yes Dreams during day naps: No Prior sleep studies: Yes Year and Where: 2013 [facility] Additional HPI information: I had the pleasure of seeing Mr. Davila today regarding moderate obstructive sleep apnea-hypopnea. As you know, he is a 68 year old gentleman who was diagnosed with the sleep-disordered breathing here in 2013. The AHI was 23. He was prescribed a CPAP device set at 7 15 cmH2O. He uses every night and all night. The compliance data show usage in 168 out of the past 180 nights, averaging 8.1 hours a night. The residual AHI is 3.0 and average time in large leak per day is 2 minutes. He wears a full face mask. He gets his supplies from [employer]. He finds the treatment very beneficial. 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 Patient is and lives in [place] [address]. Have you smoked in the past 12 months: No Alcohol use: No Caffeine use: Yes Caffeine amount and frequency: 4 cups/day Allergies and Home Medications Drug allergies reviewed: Yes (NKDA) Home medication list reviewed: Yes Review of Systems Weight loss over past 5 years: 40 Cardiovascular: reports: high blood pressure, other (stroke) Respiratory: denies: shortness of breath, wheeze, sputum production, chronic cough, other Gastrointestinal: denies: heartburn, difficulty swallowing, nausea, vomitting, diarrhea, abdominal pain, other Urinary: denies: incontinence, frequency, urgency, impotence, other Neurological: denies: headaches, seizure, head trauma, disorientation, speech dysfunction, gait or balance problems, fainting or unconsciousness, other Psychiatric: denies: Attention Deficit Hyperactivity, anxiety, depression, mood disorder, claustrophobia, other Ear/Nose/Throat: reports: nasal congestion, tonsillectomy, wisdom teeth removed Endocrine: denies: thyroid disease, history of goiter, sluggishness, too hot or cold, excessive thirst, increased appetite, increased urination, unexplained weakness, other Musculoskeletal: denies: joint pain, neck pain, back pain, joint swelling, muscle pain or cramping, mobility problems, other Immunologic: denies: sneezing, rash, itching, allergies to food or environment, other Physical Exam Vital signs obtained and entered by: Dr. Lea Height: 6 ft 1 in Weight: 233 lb Body Mass Index: 30.7 BMI Classification: Obesity Class 1 Neck circumference: 18 HEENT: No craniofacial malformation Nostrils: patent to airflow Turbinates: normal Septum: midline Mouth and throat: narrow oropharynx Soft palate: long Hard palate: normal Uvula: normal Uvula visualization: 50% Mallampati Class II Tongue: normal in size Tonsils: absent bilaterally Chin and jaw: normal size and position Neck: normal w/o lymphadenopathy or thyromegaly Heart: regular rate and rhythm Lungs: clear bilaterally Abdomen: soft, non-tender Extremities: no edema or clubbing Neurologic: intact, no focal deficits Impression and Plan IMPRESSION: 1. Obstructive Sleep Apnea-Hypopnea Syndrome, moderate, as previously diagnosed. The patient has had good treatment compliance. The current pressure setting appears effective and comfortable. The patient experiences improvement on the treatment. Because the CPAP is now older than the useful life of 5 years, I will order the patient a new one and make it an autoCPAP set between 7 and 15 cmH2O. Plan: 1. Prescription made for an autoCPAP, heated humidifier, and related supplies. 2. Try to lose weight. 3. Try newer full face masks. List given. 4. Return for follow up after one month on the new machine. I spent 100% of this visit face to face with the patient with greater than 50% of this was spent time counseling the patient and coordination of care.
== END 2019-06-02 10:14 | disposition home or self-care (01) ==
LOC: SC 10:13
PROVIDERS: ATTEND Internal Medicine Pulmonary Disease
DX: G47.33 Obstructive sleep apnea (adult) (pediatric) (principal); E66.9 Obesity, unspecified; Z68.30 Body mass index [BMI] 30.0-30.9, adult
CPT/HCPCS: 99203; 99212

== ENCOUNTER 2019-07-14 11:54 | Outpatient (CLI) | payer BC | END 2019-07-14 11:55 | disposition home or self-care (01) | LOC: LAB.S 11:54 | PROVIDERS: ATTEND Specialist | DX: C61 Malignant neoplasm of prostate (principal); Z08 Encounter for follow-up examination after completed treatment for malignant neoplasm; Z85.46 Personal history of malignant neoplasm of prostate | CPT/HCPCS: 36415; 84153 ==

== ENCOUNTER 2019-09-10 16:52 | Outpatient (CLI) | payer BC ==
--- NOTE | 2019-09-10 11:34 | SLEEP CARE CONSULTATION ---
Information from patient questionnaire entered by Shilap Cortez. I have reviewed and concur with the information entered by Shilpa Cortez. This document represents the service I personally performed and the decisions made by me, Alena Thompson, RN, MSN, [employer]. History of Present Illness Service Date and Time: 09/10/20191651 Previous diagnosis: Moderate, Obstructive Sleep Apnea-Hypopnea Syndrome AHI: 23 Reason for follow up: first compliance after device update Equipment type: CPAP Equipment obtained from: [employer] Mask style: Full face (using old mask - did not like what was given at set up) Backup mask available: Yes Last cushion change: a year CPAP Compliance Data - Data Reviewed with Patient Average duration of nightly device use: 8h 48m Compliance rate %: 100 Current pressure setting (cmH2O): 7-15 Humidity settin Heated hose settin Average residual AHI: 5.0 Average large leak: 18m 6s Subjective Patient concerns: reports: other ( sometimes it can take awhile to get to sleep due to things on the mind. Feels he sleeps well overall. ). denies: aerophagia, mask discomfort, air blowing in eyes, mask leak noise, condensation in mask/hose, nasal congestion, dry mouth, nose, throat, epistaxis Observed to snore while using device: No Current pressure setting perceived as: comfortable On therapy, patient: reports: sleeping better, awakening more refreshed, being more awake and alert during the day, more rested overall. denies: drowsiness while driving, other Initial [place] Sleepiness Scale score: 3 Allergies and Home Medications Home medication list reviewed: No (no changes) Review of Systems Review of systems same as previous: Yes Physical Exam Height: 6 ft 1 in Impression and Plan 1. Obstructive Sleep Apnea-Hypopnea Syndrome, moderate, with good treatment compliance and slightly elevated residual AHI. On CPAP therapy, the patient has better sleep quality and is more rested overall. Patient is very pleased with his new CPAP device. However, the nasal mask given at set up is not working for him. He prefers using the full face mask style presently using. No updated supplies have been sent since set up and having difficulty explaining his mask needs. Thus I will write an order to contact patient in regard to full face mask preference so can get proper mask updates. His current mask is one year old and does not think it has a cushion replacement, so this will need to be clarified by the RT for [employer]. He is to contact this office if unable to work through supply concerns with [employer]. His mask leaks are also elevating his residual AHI slightly so he will adjust headgear until he can obtain new supplies. I will also slightly increase his pressure range to [id number] as his mean pressure is 7.9cmH20 and will also reduce slight elevation of residual AHI. Patient advised to contact this office if the pressure change is uncomfortable. To reduce occasional sleep onset insomnia due to things on the mind, he is advised to incorporate a longer relaxing ritual before bed after watching action movies such as reading something relaxing. Patient's apnea severity and rationale for treatment to reduce apnea, improve sleep quality and reduce hypertension, cardiovascular and cerebrovascular events was reviewed. * Change CPAP pressure to 8-15 cmH2O * Prescription for mask change * Implement methods to reduce occasional insomnia. * Notify me if snoring with mask or feeling that the pressure is too much or too little * Call this office if any problems using CPAP * Return for follow up in 1 year , or sooner if concerns arise Visit Type: Telehealth Phone (to minimize the risk of COVID 19 exposure, the patient has agreed to this visit and to have it billed to insurance) Patient Location: Home Location of Provider: Home Patient agrees and consents to this telehealth visit type: Yes Time Spent with Patient (minutes): 18 Provider Statement: I spent 100% of the Telehealth Phone Call with the patient with greater than 50% spent counseling the patient and coordination of care.
== END 2019-09-10 16:53 | disposition home or self-care (01) ==
LOC: SC 16:52
PROVIDERS: ATTEND Nurse Practitioner Family
DX: G47.33 Obstructive sleep apnea (adult) (pediatric) (principal)

== ENCOUNTER 2020-06-23 10:57 | Outpatient (CLI) | payer BC ==
--- NOTE | 2020-06-23 11:37 | CT Report ---
PROCEDURE: LUMBAR SPINE WO INDICATIONS: SPINE, LBP TECHNIQUE: Noncontrast 3 mm thick sections acquired from the T12 level to the sacrum. Sagittal and coronal refo rmats were constructed. For radiation dose reduction, the following was used: automated exposure co ntrol, adjustment of mA and/or kV according to patient size. COMPARISON: 12/03/2014 FINDINGS: Image quality: Excellent. Bones: No acute vertebral body compression fractures. No suspicious lytic or blastic bony lesions. Mild levoconvex scoliotic curvature is seen. Age-appropriate lower thoracic degenerative changes are seen. T12-L1: The disc height is well-preserved. Bridging anterior osteophytes are seen. Mild disc bulge is seen. No significant neural foraminal or central canal narrowing can be seen. L1-L2: Moderate to severe loss of disc height is seen. Vacuum disc phenomenon is seen at this lev el. Endplate irregularity and sclerosis can be seen. Moderate disc bulge is seen at this level. Bridging endplate osteophytes are seen on the right and on the left. There is at least moderate bila teral neuroforaminal narrowing seen. At least moderate central canal narrowing is seen. These imagin g findings are clearly progressed the prior examination. L2-L3: Moderate to severe loss of disc height is seen. Partially bridging endplate osteophytes are seen on both sides, left worse than right. Posteriorly directed endplate osteophytes are seen. Vac uum disc phenomenon is seen at this level. Moderate to prominent disc bulge is seen, with a central/ right disc protrusion. There is moderate to severe bilateral neuroforaminal narrowing seen, right wor se than left. Moderate to severe central canal narrowing is also seen. These degenerative changes are worse than in 2015. L3-L4: Moderate to severe loss of disc height is seen. Prominent endplate irregularity and endplate sclerosis can be seen. Bridging endplate osteophytes are seen. Posteriorly directed endplate osteoph ytes are seen. Moderate to prominent disc bulge is seen. Moderate facet hypertrophy is seen. There is moderate to severe bilateral neuroforaminal narrowing seen. Moderate to severe central canal narr owing is also seen. These degenerative changes have progressed when compared to the prior examination . L4-L5: Vertebral body fusion is seen at this level, which is attributed to spontaneous fusion. Fusi on of endplate osteophytes can be seen. Posteriorly directed endplate osteophytes are seen. There is at least moderate right-sided and moderate to severe left-sided neuroforaminal narrowing seen. No si gnificant central canal narrowing is seen at this level. These imaging findings are similar to the i mages of the prior examination. L5-S1: Bilateral L5 pars defects are seen, with associated mild grade 1 anterolisthesis at this lev el. Moderate to severe loss of disc height is seen. Vacuum disc phenomenon is seen at this level. A t least moderate disc bulge is seen. There is moderate to severe bilateral neuroforaminal narrowing s een. Moderate central canal narrowing is seen. These imaging findings are similar to the images of the prior examination. Soft tissues: No retroperitoneal masses or hematomas. Visualized aorta is normal in caliber. Promin ent atherosclerotic calcification is seen. IMPRESSION: Lumbar spine degenerative changes are seen, which are worst at L4-L5 and L5-S1. Interval progression of degenerative change at L1-L2, L2-L3 and L3-L4 compared to 2015. Mild levoconvex scoliotic curvature is seen. Prominent atherosclerotic vascular calcification is noted. Reviewed by: Chance Reyes MD on 06/23/2020 10:36 AM [place] Approved by: Chance Reyes MD on 06/23/2020 10:36 AM [facility] Station ID: [id number]
== END 2020-06-23 10:58 | disposition home or self-care (01) ==
LOC: DI 10:57
PROVIDERS: ATTEND Orthopaedic Surgery
DX: M47.816 Spondylosis without myelopathy or radiculopathy, lumbar region (principal); M41.86 Other forms of scoliosis, lumbar region

== ENCOUNTER 2020-07-14 11:36 | Outpatient (CLI) | payer BC | END 2020-07-14 11:37 | disposition home or self-care (01) | LOC: LAB.S 11:36 | PROVIDERS: ATTEND Specialist | DX: Z08 Encounter for follow-up examination after completed treatment for malignant neoplasm (principal); Z85.46 Personal history of malignant neoplasm of prostate | CPT/HCPCS: 36415; 84153 ==

== ENCOUNTER 2020-09-05 10:46 | Outpatient (CLI) | payer BC ==
--- NOTE | 2020-09-05 14:00 | SLEEP CARE CONSULTATION ---
Information from patient questionnaire entered by Hammad Friend. I have reviewed and concur with the information entered by Hammad Friend. This document represents the service I personally performed and the decisions made by me, Gisselle Lea MD, [facility]. History of Present Illness Service Date and Time: 09/05/2020 1046 Previous diagnosis: Moderate, Obstructive Sleep Apnea-Hypopnea Syndrome AHI: 23 Reason for follow up: annual (Last seen 08/2019) Equipment type: CPAP Equipment obtained from: [employer] Mask style: Full face (using old mask - did not like what was given at set up) Year and Where: 2013 [facility] additional information: HPI: Mr. Davila was diagnosed to have moderate obstructive sleep apnea- hypopnea syndrome and returns with his today for follow up of CPAP therapy. The patient gets his supplies from [employer]. He wears a full face mask that he has to pay for himself because [employer] keeps sending him the nasal pillows that do not fit. He continues to use the device nightly and all through the night. The compliance report shows that he uses the device 179 nights out of 180 nights and averages 6.6 hours a night. The > 4 hours compliance rate is 97.8%. He complains of no particular problem with the device such as soreness on the face, dry nose, epistaxis, nasal congestion or headache. He thinks that the pressure of 7 - 15 cmH2O is alright. On the CPAP device he noticed improvement in his sleep quality, and that he wakes up feeling fresher in the morning and more awake/alert during the day. [place] Sleepiness Scale score is 9. His notices no snore at all. The average residual AHI is 8.8 and large leak, 2 hours a night. The pressure <= 90% is 11.3 cmH2O. CPAP Compliance Data - Data Reviewed with Patient Average duration of nightly device use: 8 h 26 min Compliance rate %: 97.8 Current pressure setting (cmH2O): 7-15 Heated hose settin Average residual AHI: 8.8 Average large leak: 1 h 56 min 3 sec Subjective Initial [place] Sleepiness Scale score: 3 (in 2019 (5 in 2013) Current [place] Sleepiness Scale score: 9 Allergies and Home Medications Drug allergies reviewed: Yes Home medication list reviewed: Yes Review of Systems Review of systems same as previous: Yes Physical Exam Height: 6 ft 1 in Weight: 230 lb Body Mass Index: 30.3 BMI Classification: Obese Impression and Plan IMPRESSION: 1. Obstructive Sleep Apnea-Hypopnea Syndrome, moderate, with the patient doing well on nasal CPAP therapy. He has good compliance and significant clinical benefit. Overall, he is very satisfied with treatment and plans to continue with it long-term. I will send a prescription to [facility] specifying a full face mask. I will recheck the residual AHI and air leak in about 2 months. PLAN: 1. Continue with autoCPAP set between 7 and 15 cm H2O. 2. Prescription made for a full face mask. The patient would like to try a [employer] AirTouch F-20 full face mask. Return in two months for follow up. Follow up recommended for: Weight management Visit Type: In Office Time Spent with Patient (minutes): 15 Provider Statement: I spent 100% of the Face to Face Visit with the patient with greater than 50% spent counseling the patient and coordination of care.
== END 2020-09-05 10:47 | disposition home or self-care (01) ==
LOC: SC 10:46
PROVIDERS: ATTEND Internal Medicine Pulmonary Disease
DX: G47.33 Obstructive sleep apnea (adult) (pediatric) (principal); E66.9 Obesity, unspecified; Z68.30 Body mass index [BMI] 30.0-30.9, adult
CPT/HCPCS: 99212

== ENCOUNTER 2020-09-12 10:32 | Inpatient (IN) | payer BC ==
--- OUTSIDE RECORDS SUMMARY | 2020-09-12 11:10 | EXTERNAL MEDICAL SUMMARY RPT | Continuity of Care Document ---
:1950 Demographics Phone Unavailable Preferred Language Unknown Marital Status Unknown Confucianist Affiliation Unknown Race Unknown Ethnic Group Unknown Author Organization [facility] Address [address] [place] [address] Phone Social History date description facility [id number]
--- NOTE | 2020-09-12 11:16 | ED Physician Documentation ---
PD HPI BACK PAIN - Stated complaint Stated Complaint: RT SIDE PX - Chief complaint Chief Complaint: General - History obtained from History obtained from: Patient - History of Present Illness Timing - onset: How many weeks ago (1) Timing - duration: Weeks (1) Timing - details: Abrupt onset (End of pain thereNayeli was on a 2-3 steps up on a stepladder and fell off onto his right flank and back but was still able to do reasonable activity. He states he had decreased appetite over the last 5 days and is been more nauseous and generally not feeling well for last 2 days. Ibuprofen few times.), Still present, Waxing and waning (He has been working (works from [employer], from 2-10 am) and is packing household as he/ are moving in few weeks.) Location: Mid (right flank), Lower, Right Quality: Pain, Aching Associated symptoms: Weakness. No: Fever, Numbness, Incontinent of urine Worsened by: Movement, Lifting Contributing factors: Trauma (fell from VISE[employer]tool a week ago, still hurting right flank.) Similar symptoms before: Has not had sx before Recently seen: Not recently seen Review of Systems Constitutional: denies: Fever, Chills Nose: denies: Rhinorrhea / runny nose, Congestion Throat: denies: Sore throat Cardiac: denies: Chest pain / pressure, Palpitations Respiratory: denies: Dyspnea, Cough GI: reports: Nausea, Diarrhea (loose for 1-2 days, not watery.). denies: Abdominal Pain, Vomiting, Constipation : denies: Dysuria, Frequency, Hematuria Skin: denies: Abrasion (s), Laceration (s) Neurologic: reports: Generalized weakness. denies: Focal weakness, Numbness, Near syncope, Altered mental status, Headache Psychiatric: denies: Depressed PD PAST MEDICAL HISTORY - Past Medical History Cardiovascular: Hypertension, High cholesterol, ND Respiratory: None, Sleep apnea Endocrine/Autoimmune: Type 2 diabetes GI: None : Retention, Other HEENT: None Psych: None Musculoskeletal: None Derm: None - Past Surgical History Past Surgical History: Yes General: Colonoscopy Ortho: Knee replacement, Arthroscopic surgery, Spine surgery Cardiovascular: Coronary stent, AICD, Cardiac catheterization, Angioplasty - Present Medications Home Medications: Ambulatory Orders Medication Instructions Recorded Confirmed Nitroglycerin [Nitrostat] 0.4 mg SL Q5MIN PRN 05/22/16 01/23/17 metFORMIN [Glucophage] 500 mg PO BID 11/22/16 01/23/17 Eplerenone [Inspra] 25 mg PO DAILY tablet 02/08/17 Losartan [Cozaar] 100 mg PO DAILY tablet 02/08/17 Senna [Senokot] 17.2 - 25.8 mg PO Q6H #30 tablet 02/08/17 Tamsulosin [Flomax] 0.4 mg PO QPM capsule 02/08/17 carvediloL [Coreg] 6.25 mg PO BID tablet 02/08/17 - Allergies Allergies/Adverse Reactions: Allergies Allergy/AdvReac Type Severity Reaction Status Date / Time latex Allergy Rash Verified 09/12/20 10:46 prednisone Allergy Unknown Verified 09/12/20 10:46 - Social History Does the pt smoke?: No Smoking Status: Never smoker Does the pt drink ETOH?: No Does the pt have substance abuse?: No - Immunizations Immunizations are current?: Yes - POLST Patient has POLST: No PD ED PE NORMAL - Vitals Vital signs reviewed: Yes - General General: Alert and oriented X 3, Well developed/nourished, Other (some pain with sitting up and trunk torsional mvoement. ) - HEENT HEENT: Atraumatic, Pharynx benign. No: Moist mucous membranes - Neck Neck: Supple, no meningeal sign, No adenopathy - Cardiac Cardiac: RRR, No murmur - Respiratory Respiratory: Clear bilaterally - Abdomen Abdomen: Soft, Non distended, No organomegaly, Other (some tender RUQ without guarding nor percussion tender.) - Male Male : Deferred - Rectal Rectal: Deferred - Back Back: No spinal TTP, Other (Is tender to palpation and percussion on the right CVA area. No spinal area tenderness. There is no bruising nor rash noted.) - Derm Derm: Normal color, Warm and dry, No rash - Extremities Extremities: No deformity, No tenderness to palpate, Normal ROM s pain, No edema, No calf tenderness / cord - Neuro Neuro: Alert and oriented X 3, No motor deficit, Normal speech Eye Opening: Spontaneous Motor: Obeys Commands Verbal: Oriented GCS Score: 15 - Psych Psych: Normal mood Results - Vitals Vitals: Vital Signs - 24 hr 09/12/20 09/12/20 09/12/20 10:42 11:59 14:35 Temperature 36.7 C Heart Rate 64 59 L 55 L Respiratory 16 16 16 Rate Blood Pressure 133/61 H 147/74 H 136/82 H O2 Saturation 99 98 100 Oxygen O2 Source Room air - Labs Labs: Laboratory Tests 09/12/20 09/12/20 09/12/20 11:02 11:02 11:02 WBC 9.2 RBC 4.57 L Hgb 13.1 L Hct 39.8 L MCV 87.1 MCH 28.7 MCHC 32.9 RDW 13.8 Plt Count 272 MPV 10.2 Neut # (Auto) 7.1 H Lymph # (Auto) 0.8 L [place] # (Auto) 1.1 H Eos # (Auto) 0.1 Baso # (Auto) 0.0 Absolute Nucleated RBC 0.00 Nucleated RBC % 0.0 Sodium 132 L Potassium 4.1 Chloride 100 L Carbon Dioxide 17 L Anion Gap 15.0 H BUN 50 H Creatinine 3.3 H Estimated GFR (MDRD) 19 L Glucose 199 H Calcium 9.0 Magnesium Total Bilirubin 2.9 H AST 18 ALT 10 Alkaline Phosphatase 75 Total Creatine Kinase Total Protein 7.8 Albumin 3.7 Globulin 4.1 Albumin/Globulin Ratio 0.9 L Lipase 24 Urine Color DARK YELLOW Urine Clarity CLEAR Urine pH 5.5 Ur Specific [place] 1.025 Urine Protein 100 H Urine Glucose (UA) NEGATIVE Urine Ketones NEGATIVE Urine Occult Blood MODERATE H Urine Nitrite NEGATIVE Urine Bilirubin NEGATIVE Urine Urobilinogen 0.2 (NORMAL) Ur Leukocyte Esterase NEGATIVE Urine RBC 0-5 Urine WBC 0-3 Ur Squamous Epith Cells RARE Squamous Urine Bacteria Few Ur Microscopic Review INDICATED Urine Culture Comments NOT INDICATED 09/12/20 09/12/20 11:02 11:07 WBC RBC Hgb Hct MCV MCH MCHC RDW Plt Count MPV Neut # (Auto) Lymph # (Auto) [place] # (Auto) Eos # (Auto) Baso # (Auto) Absolute Nucleated RBC Nucleated RBC % Sodium Potassium Chloride Carbon Dioxide Anion Gap BUN Creatinine Estimated GFR (MDRD) Glucose Calcium Magnesium 1.9 Total Bilirubin AST ALT Alkaline Phosphatase Total Creatine Kinase 54 Total Protein Albumin Globulin Albumin/Globulin Ratio Lipase Urine Color Urine Clarity Urine pH Ur Specific [place] Urine Protein Urine Glucose (UA) Urine Ketones Urine Occult Blood Urine Nitrite Urine Bilirubin Urine Urobilinogen Ur Leukocyte Esterase Urine RBC Urine WBC Ur Squamous Epith Cells Urine Bacteria Ur Microscopic Review Urine Culture Comments - Rads (name of study) CT abd without contrast Radiology: Prelim report reviewed (possible contusion outer kidney right (limited by lack of contrast due to renal insufficiency).), See rad report PD MEDICAL DECISION MAKING - ED course Complexity details: reviewed results (CT scan was done without contrast due to elevated creatinine. This showed possible small contusion cortex of the right kidney. No significant injury. He appears acutely dehydrated with elevated creatinine 3.3. Presume from poor intake.), re-evaluated patient, considered differential (He describes being an active this past week with work and packing of the house with pain at the right back. He states less appetite with poor intake for 5 days. He has felt particularly bad for the last 2 days with nausea as well. Occasional NSAID use. Otherwise usual medicines.), d/w patient Departure - Departure Disposition: 66 [facility] DC/Xfer Clinical Impression: Acute renal insufficiency, Dehydration, Loss of appetite Fall down steps Qualifiers: Encounter type: initial encounter Qualified Code(s): W10.8XXA - Fall (on) (from) other stairs and steps, initial encounter Contusion, flank Qualifiers: Encounter type: initial encounter Qualified Code(s): S30.1XXA - Contusion of abdominal wall, initial encounter Condition: Stable Record reviewed to determine appropriate education?: Yes
[2020-09-12 11:30] LABS: BASOPHILS % (AUTO) 0.4 %; EOSINOPHILS # (AUTO) 0.1 10^3/uL (0.0-0.7); EOSINOPHILS % (AUTO) 1.3 %; HCT - HEMATOCRIT 39.8 % (42.0-52.0); HGB - HEMOGLOBIN 13.1 g/dL (14.0-18.0); LYMPHOCYTES # (AUTO) 0.8 10^3/uL (1.5-3.5); LYMPHOCYTES % (AUTO) 9.1 %; MEAN CORPUSCULAR HEMOGLOBIN 28.7 pg (27.0-31.0); MEAN CORPUSCULAR HGB CONC 32.9 g/dL (32.0-36.0); MEAN CORPUSCULAR VOLUME 87.1 fL (80.0-94.0); MEAN PLATELET VOLUME 10.2 fL (7.4-11.4); MONOCYTES # (AUTO) 1.1 10^3/uL (0.0-1.0); MONOCYTES % (AUTO) 11.4 %; NEUTROPHILS # (AUTO) 7.1 10^3/uL (1.5-6.6); NEUTROPHILS % (AUTO) 77.3 %; PLT - PLATELET COUNT 272 10^3/uL (130-450); RED BLOOD COUNT 4.57 10^6/uL (4.70-6.10); RED CELL DISTRIBUTION WIDTH 13.8 % (12.0-15.0); WHITE BLOOD COUNT 9.2 x10^3/uL (4.8-10.8)
[2020-09-12] MEDS ORDERED: ONDANSETRON 4 MG/2 ML VIAL IVP STA (11:30)
[2020-09-12] MEDS ORDERED: MORPHINE 2 MG/ML CARPUJECT IVP STA (11:30)
[2020-09-12] MEDS ORDERED: SODIUM CHLORIDE 0.9% 1,000 ML IV STA ×2 (11:30→14:31)
[2020-09-12 11:32] LABS: GLUCOSE, URINE (UA) NEGATIVE (NEGATIVE); KETONES,URINE (UA) NEGATIVE (NEGATIVE); LEUKOCYTE ESTERASE, URINE NEGATIVE (NEGATIVE); NITRITE,URINE NEGATIVE (NEGATIVE); OCCULT BLOOD,URINE MODERATE (NEGATIVE); PH,URINE 5.5 PH (5.0-7.5); PROTEIN,URINE 100 mg/dL (NEGATIVE); UROBILINOGEN,URINE 0.2 (NORMAL) E.U./dL (NORMAL)
[2020-09-12 11:34] LABS: CLARITY,URINE CLEAR (CLEAR)
[2020-09-12 11:38] LABS: BILIRUBIN,URINE NEGATIVE (NEGATIVE); ICTOTEST,URINE NEGATIVE
[2020-09-12] MEDS ORDERED: IOPAMIDOL-300 100 ML VIAL ONE (11:41)
[2020-09-12 11:52] LABS: ALBUMIN 3.7 g/dL (3.2-5.5); ALBUMIN/GLOBULIN RATIO 0.9 (1.0-2.2); BILIRUBIN,TOTAL 2.9 mg/dL (0.2-1.0); CREATININE 3.3 mg/dL (0.6-1.2); POTASSIUM 4.1 mmol/L (3.5-5.0); TOTAL PROTEIN 7.8 g/dL (6.7-8.2)
[2020-09-12 11:56] LABS: BACTERIA,URINE Few /HPF (None Seen); RBC,URINE 0-5 /HPF (0-5); SQUAMOUS EPITHELIAL CELL,UR RARE Squamous (<= Few); WBC,URINE 0-3 /HPF (0-3)
--- NOTE | 2020-09-12 13:30 | CT Report ---
PROCEDURE: Abdomen/Pelvis WO INDICATIONS: fall with flank/abd pain; poor GFR. TECHNIQUE: Noncontrast 5 mm thick sections acquired from the diaphragms to the symphysis. 5 mm coronal and sagi ttal reformats were then performed. For radiation dose reduction, the following was used: automated exposure control, adjustment of mA and/or kV according to patient size. COMPARISON: CT abdomen pelvis 02/09/2017 FINDINGS: Image quality: Excellent. ABDOMEN: Lung bases: Lung bases are clear. Heart size is normal. Solid organs: Liver and spleen are normal in size. Gallbladder demonstrates multiple luminal stones without wall thickening. Pancreas is normal in contours. No adrenal nodules. Kidneys are atrophic in size, without hydronephrosis or nephrolithiasis. Peritoneum and bowel: Unenhanced bowel loops demonstrate normal wall thickness and caliber. No free air. Colonic diverticula are present without inflammatory change. Mild dependent pelvic fluid is pr esent. Nodes and vessels: No retroperitoneal or mesenteric adenopathy by size criteria. Aorta and inferior vena cava are normal in caliber. Miscellaneous: No ventral hernias. There is a 2.2 cm AP by 4.0 cm transverse asymmetric soft tissue density posterior to the right kidney. However, it is noted that a similar appearance was present on prior exam in 2017 although minimally less prominent, at which time measuring 1.9 cm AP by 4.1 cm tr ansverse. It is noted Hounsfield units are slightly greater on current exam measuring approximately 5 0. PELVIS: Genitourinary: Bladder wall thickness is normal. Radiation prostate seeds are present. Miscellaneous: Small fat-containing inguinal hernias are present. Bones: No suspicious bony lesions. No vertebral body compression fractures. IMPRESSION: 1. Small asymmetric soft tissue density posterior to the right kidney, slightly increased in size com pared to 2017. Hounsfield units measure approximately 50, which is within the range of blood products . Given history of trauma, appearance is suggestive of potential small superimposed retroperitoneal h ematoma. No visualized adjacent spinous processes, transverse process or rib fractures are identified . 2. Diverticulosis. Reviewed by: Bren Wetzel MD on 09/12/2020 12:29 PM AKDT Approved by: Bren Wetzel MD on 09/12/2020 12:29 PM AKDT Station ID: [id number]
--- OUTSIDE RECORDS SUMMARY | 2020-09-12 15:33 | EXTERNAL MEDICAL SUMMARY RPT | Continuity of Care Document ---
:1950 Demographics Phone Unavailable Preferred Language Unknown Marital Status Unknown Sabianism Affiliation Unknown Race Unknown Ethnic Group Unknown Author Organization [facility] Address [address] [id number] Phone Social History date description facility [id number]
[2020-09-12 15:39] LABS: B. PARAPERTUSSIS- RESP PCR PAN NOT DETECTED; B. PERTUSSIS- RESP PCR PANEL NOT DETECTED; C. PNEUMONIAE- RESP PCR PANEL NOT DETECTED; CORONAVIRUS 229E-RESP PCR NOT DETECTED; CORONAVIRUS HKU1-RESP PCR NOT DETECTED; CORONAVIRUS NL63-RESP PCR NOT DETECTED; CORONAVIRUS OC43-RESP PCR NOT DETECTED; HUMAN METAPNEUMOVIRUS NOT DETECTED; INFLUENZA A- RESP PCR PANEL NOT DETECTED; INFLUENZA B - RESP PCR PANEL NOT DETECTED; M. PNEUMONIAE- RESP PCR PANEL NOT DETECTED; PARAINFLUENZA VIRUS 1 NOT DETECTED; PARAINFLUENZA VIRUS 2 NOT DETECTED; PARAINFLUENZA VIRUS 3 NOT DETECTED; PARAINFLUENZA VIRUS 4 NOT DETECTED; RHINOVIRUS/ENTEROVIRUS NOT DETECTED; RSV- RESP PCR PANEL NOT DETECTED; SARS-CoV-2 -RESP PCR PANEL NOT DETECTED
[2020-09-12] MEDS ORDERED: ONDANSETRON 4 MG/2 ML VIAL IVP PRN (17:21)
[2020-09-12] MEDS ORDERED: SODIUM CHLORIDE FLUSH 0.9% 10 ML SYRINGE IVP PRN (17:21)
--- NOTE | 2020-09-12 17:32 | HISTORY & PHYSICAL EXAMINATION ---
History of Present Illness - Admitted From Admitted From:: ER - History Obtained From History obtained from: Patient and ER provider - History of Present Illness HPI Comment/Other: This is a 69-year-old white male with a history of diabetes, coronary disease with stent, prior NH, hyperlipidemia. He was working on a ladder 1 week ago and fell off it onto his right flank area. He did not seek medical attention for x- rays, for possible rib fracture. He has tried to continue with the same activity daily which includes waking up at 1 AM, working at home for [employer], he is also packing up the house to move to [place]. In the last 4 days he has noticed loss of appetite and no thirst. He has required several doses of Motrin for the pain in that flank area. Today he felt more weak and not himself and therefore presented to the emergency room. ER work-up showed that he has a creatinine of 3.3 (baseline creatinine is 1.1). CK is normal. Potassium is actually low and he needed replacement in the ER. CT imaging was done that shows a retroperitoneal hematoma surrounding the right kidney, consistent with contusion from his fall. He is being admitted to the Hospitalist service for BLAINE, with a creat increase of 3 times his normal range. 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 He has 3 children who are alive and well and healthy Living arrangement: At home Living Situation: With spouse/s.o. Social History Notes: Patient works at [employer] from [id number] from home. He is moving to his home town in [place] at end of September, retiring. - Substance History Use: Uses substance without health or social issues: NONE (Patient quit cigarette smoking 11 years) Abuse: Recurrent use of substance despite neg consequences: NONE (No marijuana use, extremely rare alcohol intake) - POLST Patient has POLST: No Meds/Allgy - Home Medications Home Medications: Ambulatory Orders Medication Instructions Recorded Confirmed Nitroglycerin [Nitrostat] 0.4 mg SL Q5MIN PRN 05/22/16 01/23/17 Eplerenone [Inspra] 25 mg PO DAILY tablet 02/08/17 Losartan [Cozaar] 100 mg PO DAILY tablet 02/08/17 Senna [Senokot] 17.2 - 25.8 mg PO Q6H #30 tablet 02/08/17 Tamsulosin [Flomax] 0.4 mg PO QPM capsule 02/08/17 carvediloL [Coreg] 6.25 mg PO BID tablet 02/08/17 - Allergies Allergies/Adverse Reactions: Allergies Allergy/AdvReac Type Severity Reaction Status Date / Time latex Allergy Rash Verified 09/12/20 10:46 prednisone Allergy Unknown Verified 09/12/20 10:46 Exam - Vital Signs Vital Signs: Vital Signs x48h Temp Pulse Pulse Resp BP BP Pulse Ox 09/12/20 16:03 36.8 C 59 L 19 144/63 H 99 09/12/20 14:35 55 L 16 136/82 H 100 09/12/20 11:59 59 L 16 147/74 H 98 09/12/20 10:42 36.7 C 64 16 133/61 H 99 - Physical Exam General Appearance: positive: No acute distress, Alert Eyes Bilateral: positive: Normal inspection ENT: positive: ENT inspection nml, Dry mucous membranes Neck: positive: Nml inspection Respiratory: positive: No respiratory distress, Breath sounds nml Cardiovascular: positive: Regular rate & rhythm, Systolic murmur (1/6 systolic murmur at the apex) Abdomen: positive: Non-tender, Nml bowel sounds, No distention Back: positive: Other (No flank pain or tenderness) Skin: positive: Warm, Dry Extremities: positive: Full ROM, No pedal edema Neurologic/Psychiatric: positive: Oriented x3, Motor nml, Other (He occasionally slips up on his words and says them wrong and has finding difficulty. word finding difficulty) Conclusion/Plan - Problem List (1) BLAINE (acute kidney injury) Conclusion/Plan: Etiology appears to be volume depletion from taking his eplerenone while having nearly no oral liquid intake for 4 days due to poor appetite. His retroperitoneal (kidney contusion) hematoma also may have affected renal function. Begin IV fluids. Obtain an echo to assess LVEF to know how rapidly IV fluids can be administered. Order renal diet. Avoid nephrotoxins. Epleronine, Losartan and any Metformin will be on hold. The patient told me he has stopped using Metformin because it gave him diarrhea, unknown months ago and only follows a diabetic diet Follow BMP daily (2) Traumatic retroperitoneal hematoma Conclusion/Plan: As per history. Pain meds as needed (3) Contusion, flank Conclusion/Plan: As per history. Pain meds as needed Qualifiers: Encounter type: initial encounter Qualified Code(s): S30.1XXA - Contusion of abdominal wall, initial encounter (4) DM type 2 (diabetes mellitus, type 2) Conclusion/Plan: The patient told me he has stopped using Metformin because it gave him diarrhea, unknown months ago and only follows a diabetic diet. Will order carb controlled diet, sliding scale insulin (5) Hyponatremia Conclusion/Plan: This is hypovolemic hyponatremia. Start IV hydration. Will obtain echo to establish LVEF, to assist in management of rate of hydration Follow BMP daily (6) Hx of coronary artery disease Conclusion/Plan: He takes a baby aspirin a day (forgot to put it on his med list). This will be not be continued while he has the kidney contusion with hematoma. 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 He is followed by Dr. Caio Neri. He has an AICD, therefore the EF must of been under 40% at some time. Continue his carvedilol, will hold losartan and eplerenone. Obtain Echo to establish LVEF. (8) Anemia Conclusion/Plan: Possibly this is from being a diabetic We will check B12 and folate levels and iron stores and replace if low. (9) Frequent falls Conclusion/Plan: When asking review of systems, the patient admitted that he also fell off a ladder 4 months ago, hitting the back of his head and he sought no medical attention. He did blackout. He thought he had a concussion. He took Tylenol for pain. We will obtain a head CT. - Lab Results Fish Bones: 09/12/20 11:02 09/12/20 11:02
[2020-09-12] MEDS: NS W/20 MEQ KCL 1,000 ML IV SCH (18:15)
--- NOTE | 2020-09-12 20:45 | CT Report ---
PROCEDURE: HEAD WO INDICATIONS: Fall off ladder 4 mos onto head TECHNIQUE: Noncontrast 4.5 mm thick angled axial sections acquired from the foramen magnum to the vertex. For r adiation dose reduction, the following was used: automated exposure control, adjustment of mA and/or kV according to patient size. COMPARISON: None. FINDINGS: Image quality: Excellent. CSF spaces: Basal cisterns are patent. No extra-axial fluid collections. Ventricles are normal in size and shape. Brain: No midline shift. No intracranial masses or hemorrhage. No mass effect. Jauregui-white matter i nterface is normal. There cerebral volume loss for age with resultant ventricular and sulcal prominen ce. There are periventricular and deep white matter chronic small vessel ischemic changes. Atheroscle rotic calcifications are noted in the intracranial segments of the bilateral internal carotid arterie s. Skull and face: Calvarium and visualized facial bones are intact, without suspicious lesions. Sinuses: Visualized sinuses and mastoids are clear. IMPRESSION: 1. CT head without acute intracranial abnormalities. 2. Age-related senescent changes and sequela of chronic small vessel ischemic disease. 3. No calvarial fractures identified. Reviewed by: Abhijit Contreras MD on 09/12/2020 8:44 PM PDT Approved by: Abhijit Contreras MD on 09/12/2020 8:44 PM PDT Station ID: [id number]
[2020-09-12] MEDS: INSULIN ASPART 300 UNIT/3 ML PEN SUBQ SCH (21:02)
[2020-09-12] MEDS: TAMSULOSIN 0.4 MG CAPSULE PO SCH (21:02)
[2020-09-12] MEDS: SODIUM CHLORIDE FLUSH 0.9% 10 ML SYRINGE IVP SCH (23:53)
[2020-09-13] MEDS: NS W/20 MEQ KCL 1,000 ML IV SCH ×3 (01:49→23:51)
[2020-09-13 05:45] LABS: MEAN CORPUSCULAR HEMOGLOBIN 28.6 pg (27.0-31.0); MEAN CORPUSCULAR HGB CONC 32.4 g/dL (32.0-36.0); MEAN CORPUSCULAR VOLUME 88.3 fL (80.0-94.0); MEAN PLATELET VOLUME 10.2 fL (7.4-11.4); RED BLOOD COUNT 3.85 10^6/uL (4.70-6.10); RED CELL DISTRIBUTION WIDTH 14.1 % (12.0-15.0); WHITE BLOOD COUNT 3.8 x10^3/uL (4.8-10.8)
[2020-09-13 06:11] LABS: CREATININE 2.5 mg/dL (0.6-1.2); MAGNESIUM 1.9 mg/dL (1.7-2.8); PHOSPHORUS 3.1 mg/dL (2.5-4.6); POTASSIUM 4.2 mmol/L (3.5-5.0)
[2020-09-13 06:25] LABS: FOLATE 8.88 ng/mL (5.90 - >24.8)
[2020-09-13] MEDS: SODIUM CHLORIDE FLUSH 0.9% 10 ML SYRINGE IVP SCH ×3 (08:18→23:44)
[2020-09-13] MEDS: FERROUS GLUCONATE 324 MG TABLET PO SCH (08:18)
[2020-09-13] MEDS: ACETAMINOPHEN 325 MG TABLET PO PRN (08:18)
[2020-09-13] MEDS: INSULIN ASPART 300 UNIT/3 ML PEN SUBQ SCH ×4 (08:32→20:44)
[2020-09-13 08:49] LABS: ESTIMATED AVERAGE GLUCOSE 186 mg/dL (70-100); HEMOGLOBIN A1c% 8.1 % (4.27-6.07)
--- NOTE | 2020-09-13 12:05 | PROVIDER PROGRESS NOTE ---
Assessment/Plan - Problem List (1) BLAINE (acute kidney injury) Assessment/Plan: Patient reported he feels much better on today. He will report he stopped oral input for 4 days Because of loss of appetite. Patient new echo show patient only had 20 to 25% of EF. We will reduce IV fluids dosage to 83.3cc/h, Because patient had very low EF, it occurred because patient has vascular poor perfusion as well. Closely vital signs monitor.Continue laboratory director, continue renal diet. Avoid nephrotoxins (2)severe systolic heart failure Patient has new ECHO show He had 20 to 25% of EF. pt had AICD. Patient feel comfortable today, denies chest pain, shortness of breath. 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 Pain meds as needed (5) DM type 2 (diabetes mellitus, type 2) Conclusion/Plan: A1C is 8.1 The patient report he has stopped using Metformin because it gave him diarrhea. Will order carb controlled diet, sliding scale insulin (6) Hyponatremia resolved (7) Hx of coronary artery disease Conclusion/Plan: He takes a baby aspirin a day (forgot to put it on his med list). This will be not be continued while he has the kidney contusion with hematoma. (8) Old LA (myocardial infarction) EF in new ECHO show 20-25%, pt has AICD, Patient had slightly elevated blood pressure, we will continue Coreg, Losartan, and nuclear monitoring technician, we will check lipid panel (9) Anemia Conclusion/Plan: Patient had hemoglobin 11, iron deficiency, B12 183, give patient IM B12, and iron pill (10) Frequent falls Conclusion/Plan: pt had frequent fall recently, head CT is Unremarkable, Patient request to walk with nurse. nurse will safely walk with Pt to see if pt need consult with PT/OT - Current Meds Current Meds: Current Medications Generic Name Dose Route Start Last Admin Trade Name Freq PRN Reason Stop Dose Admin Acetaminophen 650 mg 09/12/20 17:21 09/13/20 08:18 Acetaminophen 325 Mg Tablet PO 650 mg Q4HR PRN Administration Pain or Fever > 38C (100.4F) Ferrous Gluconate 324 mg 09/13/20 08:00 09/13/20 08:18 Ferrous Gluconate 324 Mg Tablet PO 324 mg DAILYWM [facility] Administration Sodium Chloride 10 ml 09/13/20 01:00 09/13/20 08:18 Sodium Chloride Flush 0.9% 10 Ml Syringe IVP Not Given 0100,0900,1700 JOSE Tamsulosin HCl 0.4 mg 09/12/20 21:00 09/12/20 21:02 Tamsulosin 0.4 Mg Capsule PO 0.4 mg QPM JOSE Administration - Lab Result Fish Bone Diagrams: 09/13/20 05:18 09/13/20 05:18 - Additional Planning My Orders: My Active Orders 09/13/20 08:00 Ferrous Gluconate [Fergon] 324 mg PO DAILYWM 09/13/20 Lunch Low Sodium Diet [DIET] 09/13/20 12:00 Insulin Aspart [NovoLOG] 1 - 9 unit SUBQ 0800,1200,1700,2100 Losartan [Cozaar] 100 mg PO DAILY Ns W/20 Meq KCl [Normal Saline 0.9% W/20 Meq KCl] 1,000 ml IV 83.3 mls/hr Subjective - Subjective Patient Reports: Feeling Better Objective Vital Signs: Vital Signs - 24 hr 09/12/20 09/12/20 09/13/20 14:35 16:03 00:00 Temperature 36.8 C 36.9 C Heart Rate 55 L Heart Rate [ 59 L 62 Brachial] Respiratory 16 19 20 Rate Blood Pressure 136/82 H Blood Pressure 144/63 H 156/78 H [Left Brachial artery] O2 Saturation 100 99 95 09/13/20 08:00 Temperature 36.9 C Heart Rate Heart Rate [ 60 Brachial] Respiratory 16 Rate Blood Pressure Blood Pressure 150/70 H [Left Brachial artery] O2 Saturation 97 Oxygen O2 Source Room air I&O (Last 24 Hrs): Intake and Output Totals x24h 09/11/20 09/12/20 09/13/20 23:59 23:59 23:59 Intake Total 2700.417 1584.583 Output Total 350 Balance 2700.417 1234.583 General: Alert, Oriented x3, Cooperative, No acute distress HEENT: Atraumatic Neck: Supple Lymphatic: no adenopathy Neuro: Alert, Non Focal, Oriented Times 3 Cardiovascular: Regular rate, Normal S1, Normal S2 Respiratory: Chest non-tender, No respiratory distress, Breath sounds nml Abdomen: Normal bowel sounds, Soft Extremities: Normal pulses - Results Results: Laboratory Results WBC 3.8 x10^3/uL (4.8-10.8) L 09/13/20 05:18 RBC 3.85 10^6/uL (4.70-6.10) L 09/13/20 05:18 Hgb 11.0 g/dL (14.0-18.0) L 09/13/20 05:18 Hct 34.0 % (42.0-52.0) L 09/13/20 05:18 MCV 88.3 fL (80.0-94.0) 09/13/20 05:18 MCH 28.6 pg (27.0-31.0) 09/13/20 05:18 MCHC 32.4 g/dL (32.0-36.0) 09/13/20 05:18 RDW 14.1 % (12.0-15.0) 09/13/20 05:18 Plt Count 187 10^3/uL (130-450) 09/13/20 05:18 MPV 10.2 fL (7.4-11.4) 09/13/20 05:18 Neut # (Auto) 7.1 10^3/uL (1.5-6.6) H 09/12/20 11:02 Lymph # (Auto) 0.8 10^3/uL (1.5-3.5) L 09/12/20 11:02 [place] # (Auto) 1.1 10^3/uL (0.0-1.0) H 09/12/20 11:02 Eos # (Auto) 0.1 10^3/uL (0.0-0.7) 09/12/20 11:02 Baso # (Auto) 0.0 10^3/uL (0.0-0.1) 09/12/20 11:02 Absolute Nucleated RBC 0.00 x10^3/uL 09/12/20 11:02 Nucleated RBC % 0.0 /100WBC 09/12/20 11:02 Sodium 137 mmol/L (135-145) 09/13/20 05:18 Potassium 4.2 mmol/L (3.5-5.0) 09/13/20 05:18 Chloride 109 mmol/L (101-111) 09/13/20 05:18 Carbon Dioxide 19 mmol/L (21-32) L 09/13/20 05:18 Anion Gap 9.0 (6-13) 09/13/20 05:18 BUN 44 mg/dL (6-20) H 09/13/20 05:18 Creatinine 2.5 mg/dL (0.6-1.2) H 09/13/20 05:18 Estimated GFR (MDRD) 26 (>89) L 09/13/20 05:18 Glucose 166 mg/dL (70-100) H 09/13/20 05:18 POC Whole Bld Glucose 181 mg/dL (70 - 100) H 09/13/20 11:31 Estimat Average Glucose 186 mg/dL (70-100) H 09/13/20 05:18 Hemoglobin A1c % 8.1 % (4.27-6.07) H 09/13/20 05:18 Calcium 8.0 mg/dL (8.5-10.3) L 09/13/20 05:18 Phosphorus 3.1 mg/dL (2.5-4.6) 09/13/20 05:18 Magnesium 1.9 mg/dL (1.7-2.8) 09/13/20 05:18 Iron 16 ug/dL (45-182) L 09/13/20 05:18 TIBC 216 ug/dL (250-450) L 09/13/20 05:18 % Saturation 7 % (20-50) L 09/13/20 05:18 Transferrin 154 mg/dL (180-329) L 09/13/20 05:18 Total Bilirubin 2.9 mg/dL (0.2-1.0) H 09/12/20 11:02 AST 18 IU/L (10-42) 09/12/20 11:02 ALT 10 IU/L (10-60) 09/12/20 11:02 Alkaline Phosphatase 75 IU/L (42-121) 09/12/20 11:02 Total Creatine Kinase 54 IU/L (22-269) 09/12/20 11:07 Total Protein 7.8 g/dL (6.7-8.2) 09/12/20 11:02 Albumin 3.7 g/dL (3.2-5.5) 09/12/20 11:02 Globulin 4.1 g/dL (2.1-4.2) 09/12/20 11:02 Albumin/Globulin Ratio 0.9 (1.0-2.2) L 09/12/20 11:02 Lipase 24 U/L (22-51) 09/12/20 11:02 Vitamin B12 183 pg/mL (180-914) 09/13/20 05:18 Folate 8.88 ng/mL (5.90 - >24.8) 09/13/20 05:18 Urine Color DARK YELLOW 09/12/20 11:02 Urine Clarity CLEAR (CLEAR) 09/12/20 11:02 Urine pH 5.5 PH (5.0-7.5) 09/12/20 11:02 Ur Specific [place] 1.025 (1.002-1.030) 09/12/20 11:02 Urine Protein 100 mg/dL (NEGATIVE) H 09/12/20 11:02 Urine Glucose (UA) NEGATIVE mg/dL (NEGATIVE) 09/12/20 11:02 Urine Ketones NEGATIVE mg/dL (NEGATIVE) 09/12/20 11:02 Urine Occult Blood MODERATE (NEGATIVE) H 09/12/20 11:02 Urine Nitrite NEGATIVE (NEGATIVE) 09/12/20 11:02 Urine Bilirubin NEGATIVE (NEGATIVE) 09/12/20 11:02 Urine Urobilinogen 0.2 (NORMAL) E.U./dL (NORMAL) 09/12/20 11:02 Ur Leukocyte Esterase NEGATIVE (NEGATIVE) 09/12/20 11:02 Urine RBC 0-5 /HPF (0-5) 09/12/20 11:02 Urine WBC 0-3 /HPF (0-3) 09/12/20 11:02 Ur Squamous Epith Cells RARE Squamous (<= Few) 09/12/20 11:02 Urine Bacteria Few /HPF (None Seen) 09/12/20 11:02 Ur Microscopic Review INDICATED 09/12/20 11:02 Urine Culture Comments NOT INDICATED 09/12/20 11:02 Nasal Adenovirus (PCR) NOT DETECTED 09/12/20 14:35 Nasal B. parapertussis DNA (PCR) NOT DETECTED 09/12/20 14:35 Nasal Coronavir 229E PCR NOT DETECTED 09/12/20 14:35 Nasal Coronavir HKU1 PCR NOT DETECTED 09/12/20 14:35 Nasal Coronavir NL63 PCR NOT DETECTED 09/12/20 14:35 Nasal Coronavir OC43 PCR NOT DETECTED 09/12/20 14:35 Nasal Enterovir/Rhinovir PCR NOT DETECTED 09/12/20 14:35 Nasal Influenza B PCR NOT DETECTED 09/12/20 14:35 Nasal Influenza A PCR NOT DETECTED 09/12/20 14:35 Nasal Parainfluen 1 PCR NOT DETECTED 09/12/20 14:35 Nasal Parainfluen 2 PCR NOT DETECTED 09/12/20 14:35 Nasal Parainfluen 3 PCR NOT DETECTED 09/12/20 14:35 Nasal Parainfluen 4 PCR NOT DETECTED 09/12/20 14:35 Nasal RSV (PCR) NOT DETECTED 09/12/20 14:35 Nasal B.pertussis DNA PCR NOT DETECTED 09/12/20 14:35 Nasal C.pneumoniae (PCR) NOT DETECTED 09/12/20 14:35 [place] Human Metapneumo PCR NOT DETECTED 09/12/20 14:35 Nasal M.pneumoniae (PCR) NOT DETECTED 09/12/20 14:35 Nasal SARS-CoV-2 (PCR) NOT DETECTED 09/12/20 14:35 - Procedures Procedures: Procedures EXCISION OF ASCENDING COLON, ENDO (11/29/16) EXCISION OF TRANSVERSE COLON, ENDO, DIAGN (11/29/16) INTRODUCTION OF OTH THERAP SUBST INTO LOW GI, ENDO (11/29/16) RESECTION OF RIGHT LARGE INTESTINE, PERC ENDO APPROACH (02/04/17) Sepsis Event Note (H) - Evaluation Current Stage of Sepsis: Ruled out ABX Reporting Has patient been on IV antibiotics over the past 48 hours?: No Current Medications - Current Medications Current Medications: Active Medications Acetaminophen (Acetaminophen 325 Mg Tablet) 650 mg PO Q4HR PRN PRN Reason: Pain or Fever > 38C (100.4F) Last Admin: 09/13/20 08:18 Dose: 650 mg Documented by: Carvedilol (Carvedilol 12.5 Mg Tablet) 25 mg PO BID JOSE Last Admin: 09/13/20 12:31 Dose: 25 mg Documented by: Cyanocobalamin (Cyanocobalamin 1,000 Mcg/Ml Vial) 1,000 mcg IM ONCE ONE Stop: 09/13/20 12:32 Ferrous Gluconate (Ferrous Gluconate 324 Mg Tablet) 324 mg PO DAILYWM [facility] Last Admin: 09/13/20 08:18 Dose: 324 mg Documented by: Potassium Chloride/Sodium Chloride (Normal Saline 0.9% W/20 Meq Kcl) 1,000 mls @ 83.3 mls/hr IV .Q12H1M [facility] Stop: 09/14/20 12:00 Last Admin: 09/13/20 12:09 Dose: 83.3 mls/hr Documented by: Insulin Aspart (Insulin Aspart 300 Unit/3 Ml Pen) 1 - 9 unit SUBQ 0800,1200,1700,2100 [facility]; Protocol Last Admin: 09/13/20 12:14 Dose: 3 unit Documented by: Losartan Potassium (Losartan 50 Mg Tablet) 100 mg PO DAILY [facility] Last Admin: 09/13/20 12:13 Dose: 100 mg Documented by: Ondansetron HCl (Ondansetron 4 Mg/2 Ml Vial) 4 mg IVP Q6HR PRN PRN Reason: Nausea / Vomiting Oxycodone HCl (Oxycodone 5 Mg Tablet) 5 mg PO Q4HR PRN PRN Reason: PAIN Sodium Chloride (Sodium Chloride Flush 0.9% 10 Ml Syringe) 10 ml IVP PRN PRN PRN Reason: NEEDED PER PROVIDER ORDERS Last Admin: 09/13/20 12:10 Dose: 10 ml Documented by: Sodium Chloride (Sodium Chloride Flush 0.9% 10 Ml Syringe) 10 ml IVP 0100,0900,1700 [facility] Last Admin: 09/13/20 08:18 Dose: Not Given Documented by: Tamsulosin HCl (Tamsulosin 0.4 Mg Capsule) 0.4 mg PO QPM [facility] Last Admin: 09/12/20 21:02 Dose: 0.4 mg Documented by: Nitroglycerin [Nitrostat] 0.4 mg SL Q5MIN PRN 05/22/16 Carvedilol [Coreg] 25 mg PO BID 09/13/20 Multivitamin 1 tab PO DAILY 09/13/20
[2020-09-13] MEDS: LOSARTAN 50 MG TABLET PO SCH (12:13)
--- NOTE | 2020-09-13 12:19 | PHARMACY PROGRESS NOTE ---
- Best Possible Medication History Admit Date and Time: 09/12/20 1506 Processed by: Pharmacy Medication History completed: Yes Patient Interview: Completed Secondary Source(s): Pharmacy records, Insurance records Patient stopped taking metformin months ago due to GI side effects. As the person ultimately responsible for medication therapy, providers are able to order a medication from an existing home medication list in [facility] via the "Reconcile Routine" prior to Confirmation of that medication by software support technician. Such practice is discouraged except when the physician, in their clinical judgment, deems that a medical need exists for a medication without regard to previous use.
[2020-09-13] MEDS ORDERED: oxyCODONE 5 MG TABLET PO PRN (12:25)
[2020-09-13] MEDS: carvediloL 12.5 MG TABLET PO SCH ×2 (12:31→20:43)
[2020-09-13] MEDS ORDERED: CYANOCOBALAMIN 1,000 MCG/ML VIAL IM ONE (12:31)
[2020-09-13] MEDS: TAMSULOSIN 0.4 MG CAPSULE PO SCH (20:43)
[2020-09-14] MEDS: ACETAMINOPHEN 325 MG TABLET PO PRN ×2 (03:07→21:18)
[2020-09-14 05:40] LABS: HCT - HEMATOCRIT 32.5 % (42.0-52.0); HGB - HEMOGLOBIN 10.7 g/dL (14.0-18.0); MEAN CORPUSCULAR HEMOGLOBIN 28.7 pg (27.0-31.0); MEAN CORPUSCULAR HGB CONC 32.9 g/dL (32.0-36.0); MEAN CORPUSCULAR VOLUME 87.1 fL (80.0-94.0); MEAN PLATELET VOLUME 10.1 fL (7.4-11.4); RED BLOOD COUNT 3.73 10^6/uL (4.70-6.10); RED CELL DISTRIBUTION WIDTH 13.8 % (12.0-15.0); WHITE BLOOD COUNT 3.3 x10^3/uL (4.8-10.8)
[2020-09-14 05:46] LABS: CALCIUM 8.1 mg/dL (8.5-10.3); CREATININE 2.2 mg/dL (0.6-1.2); POTASSIUM 4.6 mmol/L (3.5-5.0)
[2020-09-14 05:55] LABS: CHOL/HDL RATIO 6.7 (<5.0); CHOLESTEROL 161 mg/dL; HDL CHOLESTEROL 24 mg/dL; LDL CHOLESTEROL,CALCULATED 109 mg/dL; LDL/HDL RATIO 4.5 (<3.6); TRIGLYCERIDES 140 mg/dL; VLDL CHOLESTEROL 28 mg/dL
[2020-09-14] MEDS ORDERED: NITROGLYCERIN SL 0.4 MG TABLET SL PRN (07:23)
[2020-09-14] MEDS: FERROUS GLUCONATE 324 MG TABLET PO SCH (08:12)
[2020-09-14] MEDS: INSULIN ASPART 300 UNIT/3 ML PEN SUBQ SCH ×4 (08:12→21:19)
[2020-09-14] MEDS: LOSARTAN 50 MG TABLET PO SCH (08:13)
[2020-09-14] MEDS: carvediloL 12.5 MG TABLET PO SCH ×2 (08:13→21:18)
[2020-09-14] MEDS: SODIUM CHLORIDE FLUSH 0.9% 10 ML SYRINGE IVP SCH ×2 (08:15→17:06)
[2020-09-14] MEDS: NS W/20 MEQ KCL 1,000 ML IV SCH ×2 (08:15→17:48)
[2020-09-14] MEDS: EPLERENONE 25 MG TABLET PO SCH (08:50)
--- NOTE | 2020-09-14 11:25 | PROVIDER PROGRESS NOTE ---
Assessment/Plan - Problem List (1) BLAINE (acute kidney injury) Assessment/Plan: 428, patient Has no complaint, Feel good. Creatinine today is 2.2, He is baseline creatinine is between 1.1-1.8. Patient has no respiratory distress or cough or wheezing, We will continue hydration with intravenous IV fluids, c ontinue laboratory supervisor, continue vital signs monitor Patient reported he feels much better on today. He will report he stopped oral input for 4 days Because of loss of appetite. Patient new echo show patient only had 20 to 25% of EF. We will reduce IV fluids dosage to 83.3cc/h, Because patient had very low EF, it occurred because patient has vascular poor perfusion as well. Closely vital signs monitor.Continue laboratory supervisor, continue renal diet. Avoid nephrotoxins (2)severe systolic heart failure 428, patient has severe systolic heart failure with EF 20 to 25%, patient had AICD, we will precaution of fluid overloaded. We will closely monitor vital signs, And the clinic presentation. Patient has new ECHO show He had 20 to 25% of EF. pt had AICD. Patient feel comfortable today, denies chest pain, shortness of breath. 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 Pain meds as needed (5) DM type 2 (diabetes mellitus, type 2) Conclusion/Plan: A1C is 8.1 The patient report he has stopped using Metformin because it gave him diarrhea. Will order carb controlled diet, sliding scale insulin (6) Hyponatremia resolved (7) Hx of coronary artery disease Conclusion/Plan: He takes a baby aspirin a day (forgot to put it on his med list). This will be not be continued while he has the kidney contusion with hematoma. (8) Old ID (myocardial infarction) EF in new ECHO show 20-25%, pt has AICD, Patient had slightly elevated blood pressure, we will continue Coreg, Losartan, and bus driver/monitor, we will check lipid panel (9) Anemia Conclusion/Plan: Patient had hemoglobin 11, iron deficiency, B12 183, give patient IM B12, and iron pill (10) Frequent falls Conclusion/Plan: pt had frequent fall recently, head CT is Unremarkable, Patient request to walk with nurse. nurse will safely walk with Pt to see if pt need consult with PT/OT - Current Meds Current Meds: Current Medications Generic Name Dose Route Start Last Admin Trade Name Jackq PRN Reason Stop Dose Admin Acetaminophen 650 mg 09/12/20 17:21 09/14/20 03:07 Acetaminophen 325 Mg Tablet PO 650 mg Q4HR PRN Administration Pain or Fever > 38C (100.4F) Carvedilol 25 mg 09/13/20 13:00 09/14/20 08:13 Carvedilol 12.5 Mg Tablet PO 25 mg BID JOSE Administration Eplerenone 25 mg 09/14/20 09:00 09/14/20 08:50 Eplerenone 25 Mg Tablet PO 25 mg DAILY JOSE Administration Ferrous Gluconate 324 mg 09/13/20 08:00 09/14/20 08:12 Ferrous Gluconate 324 Mg Tablet PO 324 mg DAILYWM JOSE Administration Potassium Chloride/Sodium Chloride 1,000 mls @ 100 mls/hr 09/14/20 07:25 0 09/14/20 08:15 Normal Saline 0.9% W/20 Meq Kcl IV 09/15/20 03:24 100 mls/hr .Q10H JOSE Administration Insulin Aspart 1 - 9 unit 09/13/20 12:00 09/14/20 08:12 Insulin Aspart 300 Unit/3 Ml Pen SUBQ 1 unit 0800,1200,1700,2100 JOSE Administration Protocol Losartan Potassium 100 mg 09/13/20 12:00 09/14/20 08:13 Losartan 50 Mg Tablet PO 100 mg DAILY JOSE Administration Sodium Chloride 10 ml 09/12/20 17:21 09/13/20 12:10 Sodium Chloride Flush 0.9% 10 Ml Syringe IVP 10 ml PRN PRN Administration NEEDED PER PROVIDER ORDERS Sodium Chloride 10 ml 09/13/20 01:00 09/14/20 08:15 Sodium Chloride Flush 0.9% 10 Ml Syringe IVP Not Given 0100,0900,1700 JOSE Tamsulosin HCl 0.4 mg 09/12/20 21:00 09/13/20 20:43 Tamsulosin 0.4 Mg Capsule PO 0.4 mg QPM JOSE Administration - Lab Result Fish Bone Diagrams: 09/14/20 05:20 09/14/20 05:20 - Additional Planning My Orders: My Active Orders 09/13/20 Lunch Low Sodium Diet [DIET] 09/13/20 12:00 Insulin Aspart [NovoLOG] 1 - 9 unit SUBQ 0800,1200,1700,2100 Losartan [Cozaar] 100 mg PO DAILY 09/13/20 12:12 Telemetry- [RC] Q4HR 09/13/20 12:25 oxyCODONE [Roxicodone] 5 mg PO Q4HR PRN 09/13/20 13:00 carvediloL [Coreg] 25 mg PO BID 09/14/20 07:23 Nitroglycerin [Nitrostat] 0.4 mg SL Q5MIN PRN 09/14/20 07:25 Ns W/20 Meq KCl [Normal Saline 0.9% W/20 Meq KCl] 1,000 ml IV 100 mls/hr 09/14/20 09:00 Eplerenone [Inspra] 25 mg PO DAILY Subjective - Subjective Patient Reports: Feeling Better Nursing Reports: No Complaints Objective Vital Signs: Vital Signs - 24 hr 09/13/20 09/13/20 09/13/20 12:31 16:00 20:42 Temperature 37.3 C 37.3 C Heart Rate [ 61 59 L 61 Brachial] Respiratory 18 17 Rate Blood Pressure 151/66 H 151/86 H [Left Brachial artery] O2 Saturation 96 97 09/13/20 09/14/20 09/14/20 23:50 05:00 09:00 Temperature 36.9 C 37.1 C 37.1 C Heart Rate [ 64 59 L 61 Brachial] Respiratory 16 16 20 Rate Blood Pressure 146/62 H 162/64 H 154/76 H [Left Brachial artery] O2 Saturation 96 98 99 Oxygen O2 Source Room air I&O (Last 24 Hrs): Intake and Output Totals x24h 09/12/20 09/13/20 09/14/20 23:59 23:59 23:59 Intake Total 2700.417 3074.583 988 Output Total 350 200 Balance 2700.417 2724.583 788 General: Alert, Oriented x3, Cooperative, No acute distress HEENT: Atraumatic Neck: Supple Lymphatic: no adenopathy Neuro: Alert, Non Focal, Oriented Times 3 Cardiovascular: Regular rate, Normal S1, Normal S2 Respiratory: Chest non-tender, No respiratory distress Abdomen: Normal bowel sounds, Soft, No tenderness Extremities: Normal pulses - Results Results: Laboratory Results WBC 3.3 x10^3/uL (4.8-10.8) L 09/14/20 05:20 RBC 3.73 10^6/uL (4.70-6.10) L 09/14/20 05:20 Hgb 10.7 g/dL (14.0-18.0) L 09/14/20 05:20 Hct 32.5 % (42.0-52.0) L 09/14/20 05:20 MCV 87.1 fL (80.0-94.0) 09/14/20 05:20 MCH 28.7 pg (27.0-31.0) 09/14/20 05:20 MCHC 32.9 g/dL (32.0-36.0) 09/14/20 05:20 RDW 13.8 % (12.0-15.0) 09/14/20 05:20 Plt Count 199 10^3/uL (130-450) 09/14/20 05:20 MPV 10.1 fL (7.4-11.4) 09/14/20 05:20 Neut # (Auto) 7.1 10^3/uL (1.5-6.6) H 09/12/20 11:02 Lymph # (Auto) 0.8 10^3/uL (1.5-3.5) L 09/12/20 11:02 Allen # (Auto) 1.1 10^3/uL (0.0-1.0) H 09/12/20 11:02 Eos # (Auto) 0.1 10^3/uL (0.0-0.7) 09/12/20 11:02 Baso # (Auto) 0.0 10^3/uL (0.0-0.1) 09/12/20 11:02 Absolute Nucleated RBC 0.00 x10^3/uL 09/12/20 11:02 Nucleated RBC % 0.0 /100WBC 09/12/20 11:02 Sodium 140 mmol/L (135-145) 09/14/20 05:20 Potassium 4.6 mmol/L (3.5-5.0) 09/14/20 05:20 Chloride 112 mmol/L (101-111) H 09/14/20 05:20 Carbon Dioxide 21 mmol/L (21-32) 09/14/20 05:20 Anion Gap 7.0 (6-13) 09/14/20 05:20 BUN 35 mg/dL (6-20) H 09/14/20 05:20 Creatinine 2.2 mg/dL (0.6-1.2) H 09/14/20 05:20 Estimated GFR (MDRD) 30 (>89) L 09/14/20 05:20 Glucose 188 mg/dL (70-100) H 09/14/20 05:20 POC Whole Bld Glucose 164 mg/dL (70 - 100) H 09/14/20 07:42 Estimat Average Glucose 186 mg/dL (70-100) H 09/13/20 05:18 Hemoglobin A1c % 8.1 % (4.27-6.07) H 09/13/20 05:18 Calcium 8.1 mg/dL (8.5-10.3) L 09/14/20 05:20 Phosphorus 3.1 mg/dL (2.5-4.6) 09/13/20 05:18 Magnesium 1.9 mg/dL (1.7-2.8) 09/13/20 05:18 Iron 16 ug/dL (45-182) L 09/13/20 05:18 TIBC 216 ug/dL (250-450) L 09/13/20 05:18 % Saturation 7 % (20-50) L 09/13/20 05:18 Transferrin 154 mg/dL (180-329) L 09/13/20 05:18 Total Bilirubin 2.9 mg/dL (0.2-1.0) H 09/12/20 11:02 AST 18 IU/L (10-42) 09/12/20 11:02 ALT 10 IU/L (10-60) 09/12/20 11:02 Alkaline Phosphatase 75 IU/L (42-121) 09/12/20 11:02 Total Creatine Kinase 54 IU/L (22-269) 09/12/20 11:07 Total Protein 7.8 g/dL (6.7-8.2) 09/12/20 11:02 Albumin 3.7 g/dL (3.2-5.5) 09/12/20 11:02 Globulin 4.1 g/dL (2.1-4.2) 09/12/20 11:02 Albumin/Globulin Ratio 0.9 (1.0-2.2) L 09/12/20 11:02 Triglycerides 140 mg/dL (-149) 09/14/20 05:20 Cholesterol 161 mg/dL (-199) 09/14/20 05:20 LDL Cholesterol, Calc 109 mg/dL (-129) 09/14/20 05:20 VLDL Cholesterol 28 mg/dL 09/14/20 05:20 HDL Cholesterol 24 mg/dL (60-) L 09/14/20 05:20 LDL/HDL Ratio 4.5 (<3.6) 09/14/20 05:20 Cholesterol/HDL Ratio 6.7 (<5.0) 09/14/20 05:20 Lipase 24 U/L (22-51) 09/12/20 11:02 Vitamin B12 183 pg/mL (180-914) 09/13/20 05:18 Folate 8.88 ng/mL (5.90 - >24.8) 09/13/20 05:18 Urine Color DARK YELLOW 09/12/20 11:02 Urine Clarity CLEAR (CLEAR) 09/12/20 11:02 Urine pH 5.5 PH (5.0-7.5) 09/12/20 11:02 Ur Specific [place] 1.025 (1.002-1.030) 09/12/20 11:02 Urine Protein 100 mg/dL (NEGATIVE) H 09/12/20 11:02 Urine Glucose (UA) NEGATIVE mg/dL (NEGATIVE) 09/12/20 11:02 Urine Ketones NEGATIVE mg/dL (NEGATIVE) 09/12/20 11:02 Urine Occult Blood MODERATE (NEGATIVE) H 09/12/20 11:02 Urine Nitrite NEGATIVE (NEGATIVE) 09/12/20 11:02 Urine Bilirubin NEGATIVE (NEGATIVE) 09/12/20 11:02 Urine Urobilinogen 0.2 (NORMAL) E.U./dL (NORMAL) 09/12/20 11:02 Ur Leukocyte Esterase NEGATIVE (NEGATIVE) 09/12/20 11:02 Urine RBC 0-5 /HPF (0-5) 09/12/20 11:02 Urine WBC 0-3 /HPF (0-3) 09/12/20 11:02 Ur Squamous Epith Cells RARE Squamous (<= Few) 09/12/20 11:02 Urine Bacteria Few /HPF (None Seen) 09/12/20 11:02 Ur Microscopic Review INDICATED 09/12/20 11:02 Urine Culture Comments NOT INDICATED 09/12/20 11:02 Nasal Adenovirus (PCR) NOT DETECTED 09/12/20 14:35 Nasal B. parapertussis DNA (PCR) NOT DETECTED 09/12/20 14:35 Nasal Coronavir 229E PCR NOT DETECTED 09/12/20 14:35 Nasal Coronavir HKU1 PCR NOT DETECTED 09/12/20 14:35 Nasal Coronavir NL63 PCR NOT DETECTED 09/12/20 14:35 Nasal Coronavir OC43 PCR NOT DETECTED 09/12/20 14:35 Nasal Enterovir/Rhinovir PCR NOT DETECTED 09/12/20 14:35 Nasal Influenza B PCR NOT DETECTED 09/12/20 14:35 Nasal Influenza A PCR NOT DETECTED 09/12/20 14:35 Nasal Parainfluen 1 PCR NOT DETECTED 09/12/20 14:35 Nasal Parainfluen 2 PCR NOT DETECTED 09/12/20 14:35 Nasal Parainfluen 3 PCR NOT DETECTED 09/12/20 14:35 Nasal Parainfluen 4 PCR NOT DETECTED 09/12/20 14:35 Nasal RSV (PCR) NOT DETECTED 09/12/20 14:35 Nasal B.pertussis DNA PCR NOT DETECTED 09/12/20 14:35 Nasal C.pneumoniae (PCR) NOT DETECTED 09/12/20 14:35 George Human Metapneumo PCR NOT DETECTED 09/12/20 14:35 Nasal M.pneumoniae (PCR) NOT DETECTED 09/12/20 14:35 Nasal SARS-CoV-2 (PCR) NOT DETECTED 09/12/20 14:35 - Procedures Procedures: Procedures EXCISION OF ASCENDING COLON, ENDO (11/29/16) EXCISION OF TRANSVERSE COLON, ENDO, DIAGN (11/29/16) INTRODUCTION OF OTH THERAP SUBST INTO LOW GI, ENDO (11/29/16) RESECTION OF RIGHT LARGE INTESTINE, PERC ENDO APPROACH (02/04/17) Sepsis Event Note (H) - Evaluation Current Stage of Sepsis: Ruled out ABX Reporting Has patient been on IV antibiotics over the past 48 hours?: No Current Medications - Current Medications Current Medications: Active Medications Acetaminophen (Acetaminophen 325 Mg Tablet) 650 mg PO Q4HR PRN PRN Reason: Pain or Fever > 38C (100.4F) Last Admin: 09/14/20 03:07 Dose: 650 mg Documented by: Carvedilol (Carvedilol 12.5 Mg Tablet) 25 mg PO BID [facility] Last Admin: 09/14/20 08:13 Dose: 25 mg Documented by: Eplerenone (Eplerenone 25 Mg Tablet) 25 mg PO DAILY [facility] Last Admin: 09/14/20 08:50 Dose: 25 mg Documented by: Ferrous Gluconate (Ferrous Gluconate 324 Mg Tablet) 324 mg PO DAILYWM [facility] Last Admin: 09/14/20 08:12 Dose: 324 mg Documented by: Potassium Chloride/Sodium Chloride (Normal Saline 0.9% W/20 Meq Kcl) 1,000 mls @ 100 mls/hr IV .Q10H [facility] Stop: 09/15/20 03:24 Last Admin: 09/14/20 08:15 Dose: 100 mls/hr Documented by: Insulin Aspart (Insulin Aspart 300 Unit/3 Ml Pen) 1 - 9 unit SUBQ 0800,1200,1700,2100 [facility]; Protocol Last Admin: 09/14/20 08:12 Dose: 1 unit Documented by: Losartan Potassium (Losartan 50 Mg Tablet) 100 mg PO DAILY [facility] Last Admin: 09/14/20 08:13 Dose: 100 mg Documented by: Nitroglycerin (Nitroglycerin Sl 0.4 Mg Tablet) 0.4 mg SL Q5MIN PRN PRN Reason: Chest Pain Ondansetron HCl (Ondansetron 4 Mg/2 Ml Vial) 4 mg IVP Q6HR PRN PRN Reason: Nausea / Vomiting Oxycodone HCl (Oxycodone 5 Mg Tablet) 5 mg PO Q4HR PRN PRN Reason: PAIN Sodium Chloride (Sodium Chloride Flush 0.9% 10 Ml Syringe) 10 ml IVP PRN PRN PRN Reason: NEEDED PER PROVIDER ORDERS Last Admin: 09/13/20 12:10 Dose: 10 ml Documented by: Sodium Chloride (Sodium Chloride Flush 0.9% 10 Ml Syringe) 10 ml IVP 0100,0900,1700 [facility] Last Admin: 09/14/20 08:15 Dose: Not Given Documented by: Tamsulosin HCl (Tamsulosin 0.4 Mg Capsule) 0.4 mg PO QPM [facility] Last Admin: 09/13/20 20:43 Dose: 0.4 mg Documented by: Nitroglycerin [Nitrostat] 0.4 mg SL Q5MIN PRN 05/22/16 Carvedilol [Coreg] 25 mg PO BID 09/13/20 Multivitamin 1 tab PO DAILY 09/13/20
[2020-09-14] MEDS: TAMSULOSIN 0.4 MG CAPSULE PO SCH (21:18)
[2020-09-15] MEDS: SODIUM CHLORIDE FLUSH 0.9% 10 ML SYRINGE IVP SCH ×2 (01:10→08:29)
[2020-09-15 05:42] LABS: CREATININE 1.9 mg/dL (0.6-1.2); POTASSIUM 4.6 mmol/L (3.5-5.0)
[2020-09-15 05:44] LABS: HCT - HEMATOCRIT 31.3 % (42.0-52.0); HGB - HEMOGLOBIN 10.3 g/dL (14.0-18.0); MEAN CORPUSCULAR HEMOGLOBIN 28.5 pg (27.0-31.0); MEAN CORPUSCULAR HGB CONC 32.9 g/dL (32.0-36.0); MEAN CORPUSCULAR VOLUME 86.7 fL (80.0-94.0); MEAN PLATELET VOLUME 10.3 fL (7.4-11.4); RED BLOOD COUNT 3.61 10^6/uL (4.70-6.10); WHITE BLOOD COUNT 3.4 x10^3/uL (4.8-10.8)
[2020-09-15] MEDS ORDERED: SODIUM CHLORIDE 0.9% 1,000 ML IV SCH (08:00)
[2020-09-15] MEDS: INSULIN ASPART 300 UNIT/3 ML PEN SUBQ SCH ×2 (08:18→12:50)
[2020-09-15] MEDS: FERROUS GLUCONATE 324 MG TABLET PO SCH (08:29)
[2020-09-15] MEDS: LOSARTAN 50 MG TABLET PO SCH (08:30)
[2020-09-15] MEDS: carvediloL 12.5 MG TABLET PO SCH (08:30)
[2020-09-15] MEDS: EPLERENONE 25 MG TABLET PO SCH (08:30)
--- NOTE | 2020-09-15 11:06 | Discharge Plan ---
Discharge Plan Problem Reviewed?: Yes Disposition: Home, Self Care Condition: Stable Prescriptions: Ferrous Gluconate [Fergon] 324 mg PO DAILYWM #30 tablet Diet: Cardiac Activity Restrictions: Activity as Tolerated Shower Restrictions: No (fall precaution) Instruction Topics: Dehydration, Heart Failure, Heart Failure Warning Signs, Heart Failure Coping, Heart Failure Diet Changes, Heart Failure Congestive Ch, Kidney Disease Fluids Health Concerns: dehydration/BLAINE, heart failure Plan of Treatment: you had poor appetite and poor oral input which caused you had significant dehydration and acute kidney injury. But at same time you have severe heart failure, EF at 18%. Keep your fluid balance, followup with your daytime caregiver very closely, and recheck your creatinine at next week to continue monitor your Kidney function. You may followup with cardiac wellness in [facility] as well and resume your home meds. Care Goals: stabilization and improvement of your medical conditions. Assessment: discussed the care plan with you and your , answered your questions, you understood. Additional Instructions or Follow Up instructions: You may followup with your PCP in one week and recheck your kidney function test, and you may followup with your daytime caregiver as out-pt. Should your symptoms return or worsen, you may present ER or call 911 for help. [facility]-Up Care: [facility], [facility] No Smoking: If you smoke, Please STOP! Call for help. Follow-up with: MARE ISSA [Primary Care Provider] -
--- NOTE | 2020-09-15 11:38 | DISCHARGE SUMMARY ---
Discharge Summary Admit Date: 09/12/20 Discharge Date: 09/15/20 Discharging Provider: Claudio Meeks Primary Care Provider: Tristan Lopez Condition at Discharge: Stable Discharge Disposition: 01 Home, Self Care Discharge Facility Name: home - DIAGNOSES Discharge Diagnoses with Status of Each Condition: (1) BLAINE (acute kidney injury) pt's creatinine return to 1.9 as closely to his previous 1.8. patient has hx of severe systolic heart failure with EF 20 to 25%. discussed with pt and his about fluid balance. 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 pt has IVCD and pt know his medical hx. (2)severe systolic heart failure pt feel very comfortable, no cardiopulmonary distress. patient has severe systolic heart failure with EF 20 to 25% in ECHO study, patient had AICD, and he know his cardiac hx. 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 resume home meds (3) Traumatic retroperitoneal hematoma small size at CT of abdomen/pelvis. no any complaint from pt. (4) Contusion, flank stable. no complaint. p had CT of abdomen/pelvis, except small retroperitoneal hematoma, was unremarkable (5) DM type 2 (diabetes mellitus, type 2) A1C is 8.1. pt had glucose controlled in hospital. pt did not take diabetes meds in home and decline to take meds for his diabetes now. (6) Hyponatremia resolved (7) Hx of coronary artery disease stable, resume home meds (8) Old UT (myocardial infarction) stable (9) Anemia iron deficiency, pt is prescribed iron pill (10) Frequent falls stable, nurse report he has no issue to walk. pt report he has no issue to walk as well. - HPI History of Present Illness: refer from Dr. Cindy Hilliard's HPI on 09/12/20 This is a 69-year-old white male with a history of diabetes, coronary disease with stent, prior UT, hyperlipidemia. He was working on a ladder 1 week ago and fell off it onto his right flank area. He did not seek medical attention for x- rays, for possible rib fracture. He has tried to continue with the same activity daily which includes waking up at 1 AM, working at home for [employer], he is also packing up the house to move to [place]. In the last 4 days he has noticed loss of appetite and no thirst. He has required several doses of Motrin for the pain in that flank area. Today he felt more weak and not himself and therefore presented to the emergency room. ER work-up showed that he has a creatinine of 3.3 (baseline creatinine is 1.1). CK is normal. Potassium is actually low and he needed replacement in the ER. CT imaging was done that shows a retroperitoneal hematoma surrounding the right kidney, consistent with contusion from his fall. He is being admitted to the Hospitalist service for BLAINE, with a creat increase of 3 times his normal range. - HOSPITAL COURSE Hospital Course: Patient was admitted for BLAINE, patient report he lost appetite for about 4 days. he did not drink or eating enough. Patient was given gently intravenous IV fluids and hydration. Echo show patient has severe systolic heart failure with EF 18%. Patient know his cardiac history, patient had IVCD. After hydration for patient, patient's creatinine is close to his previous creatinine. Patient has no cardiopulmonary distress. - ALLERGIES Allergies/Adverse Reactions: Allergies Allergy/AdvReac Type Severity Reaction Status Date / Time latex Allergy Rash Verified 09/12/20 10:46 prednisone Allergy Unknown Verified 09/12/20 10:46 - MEDICATIONS Home Medications: Ambulatory Orders Medication Instructions Recorded Confirmed Nitroglycerin [Nitrostat] 0.4 mg SL Q5MIN PRN 05/22/16 09/13/20 Eplerenone [Inspra] 25 mg PO DAILY tablet 02/08/17 09/13/20 Losartan [Cozaar] 100 mg PO DAILY tablet 02/08/17 09/13/20 Tamsulosin [Flomax] 0.4 mg PO QPM capsule 02/08/17 09/13/20 Carvedilol [Coreg] 25 mg PO BID 09/13/20 09/13/20 Multivitamin 1 tab PO DAILY 09/13/20 09/13/20 Ferrous Gluconate [Fergon] 324 mg PO DAILYWM #30 tablet 09/15/20 - PHYSICAL EXAM AT DISCHARGE General Appearance: positive: No acute distress, Alert. negative: Lethargic Eyes Bilateral: positive: Normal inspection, PERRL, No lid inflammation ENT: positive: ENT inspection nml, No signs of dehydration. negative: Purulent nasal drainage Neck: positive: Nml inspection, Trachea midline. negative: Thyromegaly, Tracheal deviation Respiratory: positive: Chest non-tender, No respiratory distress. negative: Wheezes, Rales Cardiovascular: positive: Regular rate & rhythm. negative: Tachycardia, Bradycardia, Systolic murmur, Diastolic murmur Peripheral Pulses: positive: 2+ Abdomen: positive: Non-tender, Nml bowel sounds, No distention. negative: Tenderness Back: positive: Nml inspection Skin: positive: Color nml, Warm, Dry. negative: Cyanosis, Diaphoresis, Pallor Extremities: positive: Non-tender, Full ROM, Nml appearance. negative: Calf tenderness Neurologic/Psychiatric: positive: Oriented x3, Motor nml, Sensation nml, Mood/affect nml. negative: Weakness, Sensory loss, Facial droop, Slurred/abnml speech, Depressed mood/affect - LABS Result Diagrams: 09/15/20 05:16 09/15/20 05:16 - SEPSIS Current Stage of Sepsis: Ruled out - FOLLOW UP Follow Up: you had poor appetite and poor oral input which caused you had significant dehydration and acute kidney injury. But at same time you have severe heart failure, EF at 18%. 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 You may followup with cardiac wellness in [facility] as well and resume your home meds. 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 Should your symptoms return or worsen, you may present ER or call 911 for help. - TIME SPENT Time Spent in Discharge (Minutes): 30
[2020-09-15 12:13] VITALS: BP 162/85
== END 2020-09-15 12:30 | disposition home or self-care (01) | DRG 683 ==
LOC: ED 10:32 → MS2 15:06
PROVIDERS: ADMIT Internal Medicine; ATTEND Nurse Practitioner Gerontology
DX: N17.9 Acute kidney failure, unspecified (principal); I50.20 Unspecified systolic (congestive) heart failure; S36.892A Contusion of other intra-abdominal organs, initial encounter; E87.1 Hypo-osmolality and hyponatremia; I11.0 Hypertensive heart disease with heart failure; W11.XXXA Fall on and from ladder, initial encounter; Z91.81 History of falling; E11.9 Type 2 diabetes mellitus without complications; E86.0 Dehydration; I25.10 Atherosclerotic heart disease of native coronary artery without angina pectoris; I25.2 Old myocardial infarction; Z95.5 Presence of coronary angioplasty implant and graft; R63.0 Anorexia; Z95.810 Presence of automatic (implantable) cardiac defibrillator; E78.5 Hyperlipidemia, unspecified; G47.30 Sleep apnea, unspecified; Z85.46 Personal history of malignant neoplasm of prostate; Z87.891 Personal history of nicotine dependence; S30.1XXA Contusion of abdominal wall, initial encounter; Z79.82 Long term (current) use of aspirin; Z79.899 Other long term (current) drug therapy; D64.9 Anemia, unspecified; E61.1 Iron deficiency; Z20.822 Contact with and (suspected) exposure to COVID-19
CPT/HCPCS: 0202U; 36415; 70450; 74176; 80048; 80053; 80061; 81001; 82550; 82607; 82746; 83036; 83540; 83690; 83735; 84100; 84466; 85025; 85027; 93005; 93306; 96361; 96374; 96375; 99284; 99285; A9270; 81003; 83721; 87086